=== PATIENT | male | born 1975 | race Caucasian/White ===

== ENCOUNTER 2019-03-18 15:01 | Inpatient (IN) | payer MEDICAID ==
[~2019-03-18] VITALS: Ht 167.6 cm; Wt 78.9 kg
[2019-03-18 15:05] VITALS: BP 130/75
--- NOTE | 2019-03-18 15:21 | NUR ---
43/M BIB C/O CONSTANT LOWER ABD PAIN X 4 HRS. DENIES N/V/D. PAIN WORSE UPON AMBULATION. HX OF UTI 2 WEEKS AGO & GOT SULFA PO FOR 1 MONTH;STARTED 03/04/19. PATIENT STATES PAIN OF 10/10 AT THIS TIME. PATIENT POSITIONED FOR COMFORT; HOB ELEVATED; BEDRAILS UP X1; BED DOWN. ER MD MADE AWARE OF PT STATUS.
[2019-03-18] MEDS ORDERED: MORPHINE SULFATE 4 MG/ML SYR IVP ONE (17:00)
[2019-03-18] MEDS ORDERED: ONDANSETRON 4 MG/2 ML VIAL IVP ONE (17:00)
[2019-03-18] MEDS ORDERED: NACL 0.9% 1,000 ML IV ONE (17:05)
[2019-03-18 18:01] LABS: BASOPHILS % (AUTO) 0.2 % (0.0-2.0); EOSINOPHILS # (AUTO) 0.1 K/uL (0-0.4); EOSINOPHILS % (AUTO) 0.4 % (0.0-4.0); HEMATOCRIT 46.6 % (36-52); HEMOGLOBIN 15.8 g/dL (12.0-18.0); LYMPHOCYTES # (AUTO) 0.6 K/uL (2.0-11.5); LYMPHOCYTES % (AUTO) 4.1 % (20.5-51.1); MEAN CORPUSCULAR HEMOGLOBIN 31 pg (27-31); MEAN CORPUSCULAR HGB CONC 34 g/dL (33-37); MEAN CORPUSCULAR VOLUME 91.2 fL (80-94); MONOCYTES # (AUTO) 0.6 K/uL (0.8-1.0); MONOCYTES % (AUTO) 4.2 % (1.7-9.3); NEUTROPHILS # (AUTO) 13.1 K/uL (1.8-7.7); NEUTROPHILS % (AUTO) 91.1 % (42.2-75.2); PLATELET COUNT (AUTO) 252 K/uL (140-450); RED BLOOD CELL COUNT(AUTO) 5.11 MIL/uL (4.20-6.10); RED CELL DISTRIBUTION WIDTH 12.5 % (11.6-13.7); WHITE BLOOD COUNT (AUTO) 14.3 K/uL (4.8-10.8)
[2019-03-18 18:16] LABS: ANION GAP 10.9 (8-16); CARBON DIOXIDE 27.8 mmol/L (21-32); CREATININE 1.3 mg/dL (0.7-1.3); POTASSIUM 3.7 mmol/L (3.5-5.1)
[2019-03-18 18:22] LABS: ALBUMIN 4.2 g/dL (3.4-5.0); TOTAL BILIRUBIN 1.4 mg/dL (0.0-1.0)
[2019-03-18 18:39] LABS: APPEARANCE,URINE CLEAR (CLEAR); BILIRUBIN,URINE NEGATIVE (NEGATIVE); BLOOD, URINE NEGATIVE (NEGATIVE); COLOR,URINE YELLOW (YELLOW); LEUKOCYTE ESTERASE ,URINE NEGATIVE (NEGATIVE); NITRITE, URINE NEGATIVE (NEGATIVE); UGLUCOSE NEGATIVE (NEGATIVE)
--- NOTE | 2019-03-18 19:05 | NUR ---
PT RETURNED FROM CT. ABLE TO AMBULATE FROM W/C BED WITHOUT ASSISTANCE.
--- NOTE | 2019-03-18 19:07 | NUR ---
Pt report given to MIRIAN LORA. Transfer of care at this time.
--- NOTE | 2019-03-18 19:10 | NUR ---
RECIVED REPORT FROM CB LORA.
--- NOTE | 2019-03-18 19:15 | NUR ---
PT AMBULATED FROM TO RESTROOM TO BED WITH ASSISTANCE FROM .
--- NOTE | 2019-03-18 19:18 | NUR ---
PT RESTING UPRIGHT IN BED EYES OPEN. PT RESPIRATIONS ARE EVEN AND UNLABORED. SKIN IS WARM AND DRY TO TOUCH. PT AXO X4. PT HAS C/O 10/10 LOWER ABD PAIN. NOTIFIED. AT BEDSIDE. BED LOCKED AND IN LOWEST POSITION.
[2019-03-18] MEDS ORDERED: NACL 0.9% 1,000 ML IV SCH (19:47)
[2019-03-18] MEDS ORDERED: LEVOFLOXACIN 500 MG/D5W PREMIX 100 ML IV SCH (19:50)
[2019-03-18] MEDS ORDERED: ONDANSETRON 4 MG/2 ML VIAL IM/IVP PRN (19:50)
[2019-03-18] MEDS ORDERED: DOCUSATE SODIUM 100 MG GELCAP PO PRN (19:50)
[2019-03-18] MEDS ORDERED: PIPERACILLIN/TAZOBACTAM 3.375 GM in DEXTROSE 5% 50 ML IV ONE (19:55)
--- NOTE | 2019-03-18 20:00 | NUR ---
XRAY AT BEDSIDE.
--- NOTE | 2019-03-18 20:20 | NUR ---
Patient will be admitted to care of DR. DUNBAR. Admited to [facility] [[email or web address] Will go to room 106A. Belongings list completed. Report to SAYRA LORA.
[2019-03-18 20:26] VITALS: BP 116/83
--- NOTE | 2019-03-18 20:26 | NUR ---
ADMITTED A 43 YEAR OLD MALE FROM ED ACCOMPANIED BY 1 RN AND 1 EMT VIA GURNEY. NO APPARENT DISTRESS NOTED. PATIENT ALERT AND ORIENTED X4. ACCOMPANIED BY . WITH COMPLAINT OF 10/10 PAIN ON LOWER ABDOMINAL AREA. WILL MEDICATE PER PAIN SCALE. WITH PERIPHERAL IV ON LEFT AC 18 GAUGE ON SALINE LOCK. REVIEWED PLAN OF CARE. VERBALIZED UNDERSTANDING. SEEN BY RESIDENT DOCTOR, DOCTOR FRANCIS. ORIENTED TO ROOM, ROOMMATE, HOSPITAL ROUTINE AND ENVIRONMENT. CALL LIGHT WITHIN REACH. WILL CONTINUE TO MONITOR.
[2019-03-18] MEDS ORDERED: CLINDAMYCIN 600 MG in DEXTROSE 5% 50 ML IV SCH (21:00)
[2019-03-18] MEDS ORDERED: LORazepam 1 MG TAB PO PRN (21:00)
[2019-03-18] MEDS: DEXT 5% / NACL 0.45% 1,000 ML IV SCH (21:17)
[2019-03-18 21:23] LABS: BARBITURATE, URINE NEG. ng/ml (NEG <=200); BENZODIAZEPINE, URINE NEG. ng/mL (NEG <=200); CANNABINOID, URINE NEG. ng/mL (NEG <=50); COCAINE, URINE NEG. ng/mL (NEG <=300); OPIATE, URINE NEG. ng/mL (NEG <=2000); PHENCYCLIDINE SCREEN,URINE NEG. ng/mL (NEG <=25)
[2019-03-18] MEDS ORDERED: PIPERACILLIN/TAZOBACTAM 3.375 GM VIAL IV ONE (21:23)
[2019-03-18] MEDS ORDERED: OMEP20TC12 PO (21:29)
[2019-03-18 21:30] LABS: CHOL/HDL RATIO 4.2 (1-4.5); FREE T4 (FREE THYROXINE) 1.04 ng/dL (0.76-1.46); MAGNESIUM 1.7 mg/dL (1.8-2.4); PHOSPHORUS 2.7 mg/dL (2.5-4.9); THYROID STIMULATING HORMONE 1.36 uIU/mL (0.34-3.74)
[2019-03-18] MEDS: LORazepam 1 MG TAB PO SCH (21:31)
[2019-03-18] MEDS: ACETAMINOPHEN 325 MG TAB PO PRN (21:31)
[2019-03-18] MEDS: HYDROcodone/APAP 7.5/325 MG 1 TAB PO PRN (21:31)
[2019-03-18] MEDS: PIPERACILLIN/TAZOBACTAM 3.375 GM in DEXTROSE 5% 50 ML IV SCH (21:34)
[2019-03-18 21:49] LABS: PROTHROMBIN TIME 9.1 secs (10.8-13.4)
--- NOTE | 2019-03-18 22:20 | NUR ---
PATIENT AWAKE IN BED. NO APPARENT DISTRESS NOTED. DENIES PAIN NOR DISCOMFORT AT THIS TIME. WILL CONTINUE TO MONITOR.
[2019-03-18] MEDS ORDERED: MAGNESIUM OXIDE 400 MG TAB PO SCH (23:00)
[2019-03-19] VITALS: BP 109/67
--- NOTE | 2019-03-19 00:15 | NUR ---
PATIENT ASLEEP IN BED. VISIBLE CHEST RISE AND FALL NOTED. NO APPARENT DISTRESS NOTED. WILL CONTINUE TO MONITOR.
--- NOTE | 2019-03-19 02:15 | NUR ---
PATIENT ASLEEP IN BED. BED ON LOW POSITION. CALL LIGHT WITHIN REACH. NO APPARENT DISTRESS NOTED. VISIBLE CHEST RISE AND FALL NOTED. WILL CONTINUE TO MONITOR.
[2019-03-19] MEDS: DEXT 5% / NACL 0.45% 1,000 ML IV SCH ×3 (03:12→17:46)
--- NOTE | 2019-03-19 03:28 | NUR ---
PATIENT ASLEEP IN BED. NO APPARENT DISTRESS NOTED. VISIBLE CHEST RISE AND FALL NOTED. WILL CONTINUE TO MONITOR.
[2019-03-19 04:00] VITALS: BP 109/68
[2019-03-19] MEDS ORDERED: PIPERACILLIN/TAZOBACTAM 3.375 GM VIAL IV ONE (04:32)
[2019-03-19] MEDS: PIPERACILLIN/TAZOBACTAM 3.375 GM in DEXTROSE 5% 50 ML IV SCH ×3 (04:39→20:26)
[2019-03-19] MEDS: LORazepam 1 MG TAB PO SCH ×3 (04:48→20:27)
--- NOTE | 2019-03-19 05:25 | NUR ---
PATIENT ASLEEP IN BED. NO APPARENT DISTRESS NOTED. WILL CONTINUE TO MONITOR.
--- NOTE | 2019-03-19 06:38 | NUR ---
PATIENT HAS BEEN SCREENED AND CATEGORIZED MODERATE NUTRITION RISK. PATIENT WILL BE SEEN WITHIN 3-5 DAYS OF ADMISSION. 03/20/19-03/22/19 DORIAN HERNANDEZ MS, RDN
--- NOTE | 2019-03-19 06:55 | NUR ---
PATIENT ASLEEP IN BED. NO APPARENT DISTRESS NOTED. VISIBLE CHEST RISE AND FALL. WILL CONTINUE TO MONITOR.
[2019-03-19 07:00] LABS: ANION GAP 11.2 (8-16); CARBON DIOXIDE 26.3 mmol/L (21-32); CREATININE 1.3 mg/dL (0.7-1.3); POTASSIUM 3.5 mmol/L (3.5-5.1)
--- NOTE | 2019-03-19 07:19 | NUR ---
ENDORSED TO AM SHIFT NURSE FOR CONTINUITY OF CARE.
--- NOTE | 2019-03-19 07:20 | NUR ---
RECEIVED REPORT FROM NIGHT NURSE, PT AAOX4, PT WOKE UP TO INTRODUCE SELF, PT RESTING IN BED, PT IS STABLE, LAC 18G RUNNING D5I/2NS AT 140 ML/H, SAFETY MEASURES IN PLACE, CALL LIGHT WITHIN REACH.
[2019-03-19 07:25] LABS: CHOL/HDL RATIO 2.8 (1-4.5)
[2019-03-19 07:37] LABS: BASOPHILS % (AUTO) 0.1 % (0.0-2.0); EOSINOPHILS % (AUTO) 0.2 % (0.0-4.0); HEMATOCRIT 40.6 % (36-52); HEMOGLOBIN 13.8 g/dL (12.0-18.0); LYMPHOCYTES # (AUTO) 0.7 K/uL (2.0-11.5); LYMPHOCYTES % (AUTO) 5.2 % (20.5-51.1); MEAN CORPUSCULAR HEMOGLOBIN 31 pg (27-31); MEAN CORPUSCULAR HGB CONC 34 g/dL (33-37); MEAN CORPUSCULAR VOLUME 91.8 fL (80-94); MONOCYTES # (AUTO) 0.6 K/uL (0.8-1.0); MONOCYTES % (AUTO) 4.4 % (1.7-9.3); NEUTROPHILS # (AUTO) 11.5 K/uL (1.8-7.7); NEUTROPHILS % (AUTO) 90.1 % (42.2-75.2); PLATELET COUNT (AUTO) 210 K/uL (140-450); RED BLOOD CELL COUNT(AUTO) 4.42 MIL/uL (4.20-6.10); RED CELL DISTRIBUTION WIDTH 12.2 % (11.6-13.7); WHITE BLOOD COUNT (AUTO) 12.7 K/uL (4.8-10.8)
[2019-03-19 08:01] VITALS: BP 111/68
[2019-03-19] MEDS ORDERED: CRUSHER, PILL MC ONE (08:16)
[2019-03-19] MEDS: LACTOBACILLUS RHAMNOSUS GG 1 EACH CAP PO SCH (08:17)
[2019-03-19] MEDS: FOLIC ACID 1 MG TAB PO SCH (08:17)
[2019-03-19] MEDS: MULTIVITAMIN 1 TAB PO SCH (08:17)
[2019-03-19] MEDS: PANTOPRAZOLE 40 MG TABEC PO SCH (08:17)
[2019-03-19] MEDS: THIAMINE 100 MG TAB PO SCH (08:18)
--- NOTE | 2019-03-19 08:20 | NUR ---
GAVE ORDERED MEDICATION TO PT. EDUCATION GIVEN. GAVE TYLENOL FOR TEMPERATURE OF 101.3, PT TOLERATED WELL. ADD COOLING MEASURES, ICE TO AXIAL, AND NO BLANKETS ON PT. CALL LIGHT WITHIN REACH.
[2019-03-19] MEDS ORDERED: KETOROLAC 15 MG/ML VIAL IVP SCH (09:13)
--- NOTE | 2019-03-19 09:29 | NUR ---
GAVE PT ORDERED TORADOL FOR SEVER PAIN OF 10/10 IN ABDOMEN, PT STATES IT HURTS TO BREATH OR WHEN HE MOVES, PT EDUCATION GIVEN, PT TOLERATED WELL, PT IS STABLE, CALL LIGHT WITHIN REACH.
--- NOTE | 2019-03-19 10:40 | NUR ---
PT TEMPERATURE IS 98.8, PT IS STABLE, ONLY ALLOWED ONE BLANKET AND WILL CONTINUE TO MONITOR TEMPERATURE. CALL LIGHT WITHIN REACH.
[2019-03-19 12:00] VITALS: BP 100/57
--- NOTE | 2019-03-19 12:30 | NUR ---
GAVE PT ORDERED ANTIBIOTIC, PT EDUCATION GIVEN, PT IS STABLE, CALL LIGHT WITHIN REACH.
[2019-03-19] MEDS: MAG SULF 2000 MG/WATER PREMIX 50 ML IV SCH (13:48)
--- NOTE | 2019-03-19 13:57 | NUR ---
HANG ORDERED MEDICATION, EDUCATION GIVEN, PT STABLE, VISITORS AT BEDSIDE, CALL LIGHT WITHIN REACH.
--- NOTE | 2019-03-19 15:04 | NUR ---
PT IS SLEEPING IN BED, NO SIGNS OF DISTRESS NOTED, CALL LIGHT WITHIN REACH.
--- NOTE | 2019-03-19 15:11 | NUR ---
DISCHARGE PLANNING: A 43 Y/O MALE PATIENT FROM HOME, WHO CAME IN DUE TO ABDOMINAL PAIN. PAST MEDICAL HISTORY INCLUDE GASTRITIS. INITIAL DIAGNOSIS OF POSSIBLE PERFORATED DIVERTICULITIS. CURRENT LABS INCLUDE WBC 12.7, H/H 13.8/40.6, NA/K 136/3.5 AND MAG 1.7. URINE AND BLOOD CULTURES PENDING. ON ZOSYN. GI CONSULT WITH DR VEGA FOR PERFORATED DIVERTICULITIS. SURGICAL CONSULT WITH DR WOOD OF POSSIBLE PERFORATED DIVERTICULITIS. PER SURGERY NON SURGICAL MANAGEMENT AT THIS TIME. DC PLAN TO HOME ONCE STABLE. Addendum: 03/20/19 at 1424 by Kandis Keith CM ON FULL LIQUID DIET. CURRENT LABS INCLUDE WBC 8.8, H/H 12.7/36.9, NA/K 136/3.2. GI AND SURGICAL CONSULT IN PLACE. ABDOMINAL X RAY IS NEGATIVE. STILL ON ZOSYN IV. DC PLAN TO HOME ONCE STABLE.
--- NOTE | 2019-03-19 15:16 | NUR ---
GAVE PT AN INCENTIVE SPIROMETER, EDUCATE PT ON USING IT, PT INHALED 1500ML PER MEASUREMENTS. PT EDUCATE TO DO 10 INHALATION PER HOUR. PT VERBALIZE UNDERSTANDING, PT IS STABLE, CALL LIGHT WITHIN REACH.
[2019-03-19 16:00] VITALS: BP 113/60
[2019-03-19] MEDS: ACETAMINOPHEN 325 MG TAB PO PRN (16:15)
--- NOTE | 2019-03-19 16:17 | NUR ---
GAVE TYLENOL FOR A TEMPERATURE OF 101, COOLING MEASURES IN PLACE, ICE PACKS UNDER THE AXILA AND NO BLANKETS, EDUCATION GIVEN, PT IS STABLE, CALL LIGHT WITHIN REACH.
[2019-03-19] MEDS: HYDROcodone/APAP 7.5/325 MG 1 TAB PO PRN (17:45)
--- NOTE | 2019-03-19 17:50 | NUR ---
GAVE PT NORCO FOR SEVER ABDOMINAL PAIN OF 6/10, PT AMBULATE IN THE HALLWAY AND FELT PAIN AFTERWARDS, PT IS BACK IN BED RESTING, FAMILY MEMBER AT THE BEDSIDE, CALL LIGHT WITHIN REACH.
--- NOTE | 2019-03-19 19:07 | NUR ---
GAVE REPORT TO NIGHT NURSE FOR CONTINUITY OF CARE, PT IS STABLE.
--- NOTE | 2019-03-19 19:09 | NUR ---
RECEIVED REPORT FROM AM NURSE FUNMI, PT AAOX4, PT AMBULATORY NPO PT WITH COLD PACKS UNDERNEATH ARMPITS PER PREVIOUS NURSE HAD A FEVER EARLIER , PT RESTING IN BED, WITH FAMILY AT BEDSIDE. WITH LAC 18G RUNNING D5 1/2NS AT 140 ML/H, SAFETY MEASURES IN PLACE, CALL LIGHT WITHIN REACH.
[2019-03-19 20:00] VITALS: BP 103/65
--- NOTE | 2019-03-19 20:00 | NUR ---
VITALS SIGNS TAKEN WNL, AFEBRILE, COLD PACKS STILL MAINTAINED WITH PATIENT.
[2019-03-20] VITALS: BP 105/66
[2019-03-20] MEDS: DEXT 5% / NACL 0.45% 1,000 ML IV SCH ×3 (02:07→18:24)
[2019-03-20 04:00] VITALS: BP 106/63
--- NOTE | 2019-03-20 04:00 | NUR ---
VITALS TAKEN NO FEVER, NO COMPLAINTS OF PAIN WILL CONTINUE TO MONITOR
[2019-03-20] MEDS: PIPERACILLIN/TAZOBACTAM 3.375 GM in DEXTROSE 5% 50 ML IV SCH ×3 (04:37→20:39)
[2019-03-20] MEDS: LORazepam 1 MG TAB PO SCH (04:37)
--- NOTE | 2019-03-20 05:00 | NUR ---
PT STATED THAT WHEN PT AMBULATES THAT HE COULD FEEL ABD PAIN 9/10 REFUSED TO TAKE THE PAIN MEDICATION
--- NOTE | 2019-03-20 06:15 | NUR ---
PT ABLE TO GO TO BATHROOM STEADY GAIT, STILL NO COMPLAINTS OF PAIN WILL MONITOR
[2019-03-20 06:23] LABS: BASOPHILS % (AUTO) 0.2 % (0.0-2.0); EOSINOPHILS # (AUTO) 0.1 K/uL (0-0.4); EOSINOPHILS % (AUTO) 0.6 % (0.0-4.0); HEMATOCRIT 36.9 % (36-52); HEMOGLOBIN 12.7 g/dL (12.0-18.0); LYMPHOCYTES # (AUTO) 0.6 K/uL (2.0-11.5); LYMPHOCYTES % (AUTO) 6.5 % (20.5-51.1); MEAN CORPUSCULAR HEMOGLOBIN 32 pg (27-31); MEAN CORPUSCULAR HGB CONC 34 g/dL (33-37); MEAN CORPUSCULAR VOLUME 91.7 fL (80-94); MONOCYTES # (AUTO) 0.3 K/uL (0.8-1.0); NEUTROPHILS # (AUTO) 7.8 K/uL (1.8-7.7); NEUTROPHILS % (AUTO) 88.7 % (42.2-75.2); PLATELET COUNT (AUTO) 160 K/uL (140-450); RED BLOOD CELL COUNT(AUTO) 4.02 MIL/uL (4.20-6.10); RED CELL DISTRIBUTION WIDTH 12.4 % (11.6-13.7); WHITE BLOOD COUNT (AUTO) 8.8 K/uL (4.8-10.8)
--- NOTE | 2019-03-20 06:52 | NUR ---
PT AWAKE ALERT ORIENTED X 4, AMBULATORY, PT IN STABLE CONDITION WILL ENDORSE TO NEXT SHIFT.
[2019-03-20 06:54] LABS: ANION GAP 9.3 (8-16); CARBON DIOXIDE 26.9 mmol/L (21-32); CREATININE 1.3 mg/dL (0.7-1.3); POTASSIUM 3.2 mmol/L (3.5-5.1)
--- NOTE | 2019-03-20 07:15 | NUR ---
RECEIVED PATIENT FROM NURSING PROFESSOR NURSE. PATIENT IS AWAKE. AOX4. RESPIRATIONS EVEN AND UNLABORED, ROOM AIR. VISIBLE CHEST RISE NOTED. ON TELE MONITORING. ABDOMEN SOFT AND ROUND. C/O OF ABDOMINAL PAIN. PATIENT IS AMBULATORY. SKIN INTACT, WARM AND DRY. IV IN THE LEFT AC G 18 RUNNING D51/2NS AT 140 ML/HR. IV PATENT AND INTACT. BED IN LOW POSITION. CALL LIGHT IS WITHIN REACH. WILL CONTINUE TO MONITOR
[2019-03-20 08:00] VITALS: BP 109/59
--- NOTE | 2019-03-20 09:00 | NUR ---
STOOL OCCULT SAMPLE TAKEN.
[2019-03-20] MEDS: POLYETHYLENE GLYCOL 17 GM/PKT PO SCH (09:11)
--- NOTE | 2019-03-20 09:11 | NUR ---
GIVEN MORNING MEDICATIONS PO. EXPLAINED TO PATIENT INDICATIONS. PATIENT VERBALIZED UNDERSTANDING. WILL CONTINUE TO MONITOR
[2019-03-20] MEDS: THIAMINE 100 MG TAB PO SCH (09:12)
[2019-03-20] MEDS: LACTOBACILLUS RHAMNOSUS GG 1 EACH CAP PO SCH (09:12)
[2019-03-20] MEDS: FOLIC ACID 1 MG TAB PO SCH (09:12)
[2019-03-20] MEDS: MULTIVITAMIN 1 TAB PO SCH (09:12)
[2019-03-20] MEDS: PANTOPRAZOLE 40 MG TABEC PO SCH (09:14)
[2019-03-20] MEDS: HYDROcodone/APAP 7.5/325 MG 1 TAB PO PRN (10:55)
--- NOTE | 2019-03-20 10:55 | NUR ---
GIVEN NORCO FOR ABDOMINAL PAIN OF 610. EXPLAINED TO PATIENT INDICATIONS. PATIENT VERBALIZED UNDERSTANDING. WILL CONTINUE TO MONITOR
[2019-03-20] MEDS ORDERED: KCL 20 MEQ/WATER INJ PREMIX 200 ML IV SCH (11:00)
[2019-03-20] MEDS ORDERED: BISACODYL 10 MG SUPP RC SCH (11:00)
--- NOTE | 2019-03-20 11:24 | NUR ---
PATIENT OFF UNIT TO RADIOLOGY VIA WHEELCHAIR
--- NOTE | 2019-03-20 11:38 | NUR ---
PATIENT RETURNED FROM RADIOLOGY VIA WHEELCHAIR.
--- NOTE | 2019-03-20 11:51 | NUR ---
GIVEN DULCOLAX VIA SUPPOSITORY. HANG KCL VIA IVF. POTASSIUM LEVEL IS 3.2. PATIENT C/O OF PAIN IN THE INSERTION SITE. EDUCATED PATIENT REGARDING MEDICATIONS. PATIENT VERBALIZED UNDERSTANDING. WILL CONTINUE TO MONITOR
--- NOTE | 2019-03-20 11:59 | NUR ---
LOWERED RATE FOR KCL FROM 50 TO 30 ML/HR PER DR. CAMPOVERDE.
[2019-03-20 12:00] VITALS: BP 115/67
--- NOTE | 2019-03-20 12:39 | NUR ---
PATIENT IS EATING LUNCH AT THIS TIME. NO SIGNS OF DISTRESS NOTED. WILL CONTINUE TO MONITOR. PATIENT STATED NO PAIN IN THE IV LINE.
--- NOTE | 2019-03-20 12:52 | NUR ---
HANG ZOSYN VIA IVPB. EXPLAINED TO PATIENT MEDICATION. PATIENT VERBALIZED UNDERSTANDING. BED IN LOW POSITION. CALL LIGHT IS WITHIN REACH. WILL CONTINUE TO MONITOR
--- NOTE | 2019-03-20 14:06 | NUR ---
PATIENT IS RESTING AT THIS TIME. DENIES PAIN. BED IN LOW POSITION. CALL LIGHT IS WITHIN REACH. WILL CONTINUE TO MONITOR
[2019-03-20 16:00] VITALS: BP 132/75
[2019-03-20] MEDS: MAG SULF 2000 MG/WATER PREMIX 50 ML IV SCH (16:16)
--- NOTE | 2019-03-20 16:16 | NUR ---
GIVEN MAGNESIUM VIA IVF FOR MAG LEVEL 1.7. EXPLAINED TO PATIENT INDICATION. PATIENT VERBALIZED UNDERSTANDING. WILL CONTINUE TO MONITOR
[2019-03-20] MEDS: ACETAMINOPHEN 325 MG TAB PO PRN ×2 (18:01→22:27)
--- NOTE | 2019-03-20 18:03 | NUR ---
PATIENT STATED FEELING FEVERISH AND CHILLS. CHECKED TEMPERATURE IT'S 99.5. GIVEN TYLENOL, PATIENT INSISTS. EDUCATED PATIENT REGARDING MED. PATIENT VERBALIZED UNDERSTANDING. WILL CONTINUE TO MONITOR. AT BEDSIDE
--- NOTE | 2019-03-20 19:17 | NUR ---
ENDORSED TO INTERFACE ANALYST NURSE. PATIENT IS IN STABLE CONDITION.
--- NOTE | 2019-03-20 19:30 | NUR ---
RECEIVED BEDSIDE REPORT FROM AM SHIFT RN FOR PT'S CONTINUITY OF CARE. PT IS AAOX4, FAMILY MEMBER AT BEDSIDE, ON CANCER PROGRAM COORDINATOR, ON ROOM AIR, HAS LEFT AC 18G WITH D5 1/2 NS AT 140 ML/HR, PT DENIES PAIN AT THIS TIME. EXPLAINED TO PT AND FAMILY MEMBER THE DIRECTOR OF MANUFACTURING OPERATIONS ROUTINE, PT VERBALIZED UNDERSTANDING. SAFETY MEASURES IN PLACE, AND CALL LIGHT IS WITHIN REACH. WILL MONITOR PT THROUGHOUT SHIFT.
[2019-03-20 20:00] VITALS: BP 126/75
--- NOTE | 2019-03-20 21:25 | NUR ---
ABOUT TO ADMINISTER IV ABX, PT'S IV SITE INFILTRATED. STARTED NEW IV ON RIGHT FA WITH 22G, PT TOLERATED IT WELL, STARTED THE IVF AT 80ML/HR ORDERED, AND IV ABX ORDERED. PT ORAL TEMP WAS 101, WILL MEDICATE PT.
[2019-03-20] MEDS: LORazepam 1 MG TAB PO PRN (22:26)
--- NOTE | 2019-03-20 22:28 | NUR ---
PT'S TEMP WAS 101 VIA ORAL THERMOMETER, AND STATES FEELING ANXIOUS DT ALCOHOL WITHDRAWAL. PT STATES USED TO DRINK ALCOHOL EVERY NIGHT. NOTIFIED MD, ADMINISTERED PRN ACETAMINOPHEN, AND PRN ANTI-ANXIETY MEDICATION ORDERED. PT TOLERATED THEM WELL. COOLING MEASURES IN PLACE. PT TEACHING GIVEN, PT VERBALIZED UNDERSTANDING. WILL CONTINUE TO MONITOR PT.
[2019-03-20] MEDS: MORPHINE SULFATE 2 MG/ML SYR IVP PRN (23:57)
--- NOTE | 2019-03-20 23:57 | NUR ---
PT C/O ABD PAIN. ADMINISTERED PRN IVP PAIN MEDICATION ORDERED. COOLING MEASURES IN PLACE. MD AWARE OF PT'S TEMP. NO NEW ORDERS AT THIS TIME.
[2019-03-21] VITALS: BP 126/72
--- NOTE | 2019-03-21 00:30 | NUR ---
VS CHECKED AND CHARTED. PT VERBALIZED "FEELS MUCH BETTER NOW". TEMP 99.9. WILL CONTINUE TO MONITOR PT.
--- NOTE | 2019-03-21 02:30 | NUR ---
PT ASLEEP WITH NO SIGN SOF DISTRESS OR DISCOMFORT. WILL CONTINUE TO MONITOR PT.
[2019-03-21 04:00] VITALS: BP 134/80
[2019-03-21] MEDS: PIPERACILLIN/TAZOBACTAM 3.375 GM in DEXTROSE 5% 50 ML IV SCH ×3 (04:11→20:03)
[2019-03-21] MEDS: ACETAMINOPHEN 325 MG TAB PO PRN ×3 (04:15→19:45)
--- NOTE | 2019-03-21 04:15 | NUR ---
VS CHECKED AND CHARTED. PT'S TEMP 101.6 ORALLY. NOTIFIED MD. MD WILL SEE PT AND ASSESS. ADMINISTERED PRN PO ACETAMINOPHEN ORDERED. COOLING MEASURES IN PLACE. PT STATES HE HAS DRUMMOND AND ABD PAIN, BUT REFUSED PAIN MEDICATIONS. WILL CONTINUE TO MONITOR PT.
--- NOTE | 2019-03-21 05:45 | NUR ---
TEMPERATURE RETAKEN: 99.7. NOTIFIED MD, NO NEW ORDERS.
--- NOTE | 2019-03-21 06:21 | NUR ---
PT ASLEEP WITH NO SIGNS OF DISTRESS OR DISCOMFORT. WILL ENDORSE TO AM SHIFT RN FOR PT'S CONTINUITY OF CARE.
[2019-03-21] MEDS: MORPHINE SULFATE 2 MG/ML SYR IVP PRN ×2 (06:44→20:03)
--- NOTE | 2019-03-21 06:44 | NUR ---
PT WAS SEEN BY . C/O PERSISTENT DRUMMOND, ADMINISTERED PRN IVP PAIN MEDICATION ORDERED. PT STATES HE FEELS MUCH BETTER.
--- NOTE | 2019-03-21 07:15 | NUR ---
RECEIVED PATIENT FROM BOILER/CHILLER TECHNICIAN NURSE. PATIENT IS AWAKE. AOX4. RESPIRATIONS EVEN AND UNLABORED, ROOM AIR. VISIBLE CHEST RISE NOTED. ON TELE MONITORING. ABDOMEN SOFT AND ROUND. C/O OF ABDOMINAL PAIN. PATIENT IS AMBULATORY. SKIN INTACT, WARM AND DRY. IV IN THE RIGHT FOREARM G22 RUNNING NS AT 80 ML/HR. IV PATENT AND INTACT. BED IN LOW POSITION. CALL LIGHT IS WITHIN REACH. WILL CONTINUE TO MONITOR
[2019-03-21 07:16] LABS: ANION GAP 12.8 (8-16); CARBON DIOXIDE 24.2 mmol/L (21-32); CREATININE 1.2 mg/dL (0.7-1.3)
[2019-03-21 07:21] LABS: MAGNESIUM 2.3 mg/dL (1.8-2.4); PHOSPHORUS 2.9 mg/dL (2.5-4.9)
[2019-03-21 07:23] LABS: BASOPHILS % (AUTO) 0.1 % (0.0-2.0); EOSINOPHILS % (AUTO) 0.8 % (0.0-4.0); HEMATOCRIT 35.8 % (36-52); HEMOGLOBIN 12.3 g/dL (12.0-18.0); LYMPHOCYTES # (AUTO) 0.3 K/uL (2.0-11.5); LYMPHOCYTES % (AUTO) 6.3 % (20.5-51.1); MEAN CORPUSCULAR HEMOGLOBIN 31 pg (27-31); MEAN CORPUSCULAR HGB CONC 34 g/dL (33-37); MEAN CORPUSCULAR VOLUME 91.5 fL (80-94); MONOCYTES # (AUTO) 0.3 K/uL (0.8-1.0); MONOCYTES % (AUTO) 5.9 % (1.7-9.3); NEUTROPHILS # (AUTO) 4.8 K/uL (1.8-7.7); NEUTROPHILS % (AUTO) 86.9 % (42.2-75.2); PLATELET COUNT (AUTO) 149 K/uL (140-450); RED BLOOD CELL COUNT(AUTO) 3.92 MIL/uL (4.20-6.10); RED CELL DISTRIBUTION WIDTH 12.1 % (11.6-13.7); WHITE BLOOD COUNT (AUTO) 5.5 K/uL (4.8-10.8)
[2019-03-21] MEDS: NACL 0.9% 1,000 ML IV SCH ×2 (07:46→19:55)
--- NOTE | 2019-03-21 07:47 | NUR ---
CHANGED IVF FROM D51/2NS TO NS AT 80 ML/HR PER MD ORDER
[2019-03-21 08:00] VITALS: BP 125/77
[2019-03-21] MEDS ORDERED: LACTOBACILLUS RHAMNOSUS GG 1 EACH CAP PO SCH (09:00)
[2019-03-21] MEDS: MULTIVITAMIN 1 TAB PO SCH (09:41)
[2019-03-21] MEDS: PANTOPRAZOLE 40 MG TABEC PO SCH (09:41)
[2019-03-21] MEDS: LACTOBACILLUS RHAMNOSUS GG 1 EACH CAP PO SCH (09:41)
[2019-03-21] MEDS: THIAMINE 100 MG TAB PO SCH (09:42)
[2019-03-21] MEDS: FOLIC ACID 1 MG TAB PO SCH (09:42)
[2019-03-21] MEDS: POLYETHYLENE GLYCOL 17 GM/PKT PO SCH (09:42)
--- NOTE | 2019-03-21 09:42 | NUR ---
GIVEN MORNING MEDICATIONS PO. GIVEN NORCO FOR PAIN 6/ ABDOMINAL. EXPLAINED TO PATIENT INDICATION. PATIENT VERBALIZED UNDERSTANDING. BED IN LOW POSITION. CALL LIGHT IS WITHIN REACH. WILL CONTINUE TO MONITOR.
[2019-03-21] MEDS: HYDROcodone/APAP 7.5/325 MG 1 TAB PO PRN (09:46)
--- NOTE | 2019-03-21 10:35 | NUR ---
MADE ROUNDS. PATIENT IS RESTING AT THIS TIME. DENIES ANY PAIN. BED IN LOW POSITION. CALL LIGHT IS WITHIN REACH. WILL CONTINUE TO MONITOR.
[2019-03-21 12:00] VITALS: BP 130/81
[2019-03-21] MEDS ORDERED: POTASSIUM CHLORIDE 40 MEQ, LIDOCAINE MPF 1% 25 MG in NACL 0.9% 250 ML IV SCH (12:00)
--- NOTE | 2019-03-21 12:15 | NUR ---
PATIENT GAVE CONSENT FOR CT OF ABDOMEN/PELVIS WITH CONTRAST. DR. CAMPOVERDE SIGNED CONSENT WELL.
--- NOTE | 2019-03-21 12:28 | NUR ---
INSERTED 18G IV FOR CT. PATIENT TOLERATED WELL. IV FLUSHED WELL. PATENT AND INTACT.
[2019-03-21] MEDS: metroNIDAZOLE 500 MG/NS PREMIX 100 ML IV SCH ×2 (13:00→21:48)
[2019-03-21] MEDS: MAG SULF 2000 MG/WATER PREMIX 50 ML IV SCH (13:00)
--- NOTE | 2019-03-21 13:23 | NUR ---
GIVEN ZOSYN VIA IVPB. EXPLAINED TO PATIENT INDICATION. PATIENT VERBALIZED UNDERSTANDING. WILL CONTINUE TO MONITOR.
--- NOTE | 2019-03-21 13:23 | NUR ---
RADIOLOGY STARTED TO HAVE PT. DRINK CONTRAST. 1/2 PER HOUR OF THE WHOLE BOTTLE.
--- NOTE | 2019-03-21 13:32 | NUR ---
ESTHER assessment/discharge plan High Risk DC Screen Yes Name: Michelle Armijo Home Relationship: significant other Pre-Admission Living Arrangements: Lives with Other Other: Michelle Armijo Prior ADL Independent Current Home Health Name/Tel: N/A Current DME/02 Name/Tel: N/A Current Hospice Name/Tel: N/A Current Dialysis Name/Tel: N/A Healthcare Decision Maker: Patient Advance Directive No Information Taught: Advance Directive Community Resources Person Taught: Patient Teaching Tools: Community Resources Computer Generated Print Verbal Factors Affecting Learning: None Participation Level: Active Evaluation: Gestures Understanding Verbalizes Understanding Educator: ESTHER Arriaza Discipline: Case Mgt/Social Svcs Tentative Discharge Plan Summary: Patient is a 43 year old male admitted for possible perforated diverticulitis. I met with patient at bedside. Patient alert and oriented x4. Patient speaks Surinamese. Patient lives at home with his significant other Michelle Armijo and plans to return home upon discharge. Patient goes to [facility] ([place], [place]) for medical care. He does not have any difficulty filling his prescriptions at pharmacy. He denied hx of mental health. He admitted to drinking alcohol daily for 1 year now. He stated he drinks because his significant other likes to drink often, therefore, they drink together. He has realized this is not healthy and plans to stop drinking. He told me they are considering seeking counseling/mental health services. I provided him with education on [facility] www[facility]org for community resources including counseling/mental health services and alcohol/substance abuse treatment programs. Door Slinger and/or Tape Edge Machine Operator will follow up as needed. Signature: ESTHER Arriaza Date: Mar 21, 2019
--- NOTE | 2019-03-21 14:11 | NUR ---
CHECKED PATIENT'S TEMP 100.7. COOLING MEASURE IN PLACE: ICE PACKS GIVEN. TYLENOL IS ALSO GIVEN. PT. IS AWARE OF THE MEDICATION INDICATION. WILL RECHECK TEMP IN 30 MINS.
--- NOTE | 2019-03-21 14:56 | NUR ---
HANG FLAGYL VIA IVPB. EXPLAINED TO PATIENT MED. PATIENT VERBALIZED UNDERSTANDING. BED IN LOW POSITION. CALL LIGHT IS WITHIN REACH. WILL CONTINUE TO MONITOR
--- NOTE | 2019-03-21 15:02 | NUR ---
RECHECKED TEMPERATURE: 99.3. PATIENT DENIES FEELING FEVERISH OR HAVING CHILLS. WILL CONTINUE TO MONITOR
--- NOTE | 2019-03-21 15:36 | NUR ---
HANG KCl FOR POTASSIUM LEVEL 3.0. EXPLAINED TO PATIENT PURPOSE OF THE MED. PATIENT VERBALIZED UNDERSTANDING. WILL CONTINUE TO MONITOR
--- NOTE | 2019-03-21 15:37 | NUR ---
PATIENT IS AMBULATING AROUND THE UNIT. PATIENT DENIES ANY DIZZINESS OR DISCOMFORT. IS WALKING WITH THE PATIENT
--- NOTE | 2019-03-21 15:48 | NUR ---
HELD MAGNESIUM. PATIENT MAGNESIUM LEVEL IS 2.3, WHICH IS WITHIN THE NORMAL LEVEL. DR. AGARWAL IS AWARE.
--- NOTE | 2019-03-21 15:57 | NUR ---
PATIENT IS OFF UNIT FOR CT VIA WHEELCHAIR.
[2019-03-21 16:00] VITALS: BP 121/82
--- NOTE | 2019-03-21 17:05 | NUR ---
DR. CAMPOVERDE SPOKE WITH THE PATIENT AND .
--- NOTE | 2019-03-21 17:56 | NUR ---
CHECKED TEMPERATURE: 101.1. COOLING MEASURE IN PLACE
--- NOTE | 2019-03-21 18:34 | NUR ---
RECHECKED TEMPERATURE: 101.8. GIVEN COOL PACKS. TYLENOL NOT DUE YET
--- NOTE | 2019-03-21 19:13 | NUR ---
ENDORSED TO MEDICAL DRIVER NURSE. PATIENT IS IN STABLE CONDITION.
--- NOTE | 2019-03-21 19:30 | NUR ---
RECEIVED BEDSIDE REPORT FROM AM SHIFT RN FOR PT'S CONTINUITY OF CARE. PT IS AAOX4, WITH FAMILY MEMBER AT BEDSIDE. PT C/O DRUMMODN AND FEVER AND CHILLS. PT FAMILIAR WITH IMMIGRATION LAW SPECIALIST ROUTINE. SAFETY MEASURES IN PLACE, AND CALL LIGHT IS WITHIN REACH. WILL CHECK VS AND MEDICATE NEEDED.
[2019-03-21 20:00] VITALS: BP 121/61
--- NOTE | 2019-03-21 20:00 | NUR ---
PT C/O FEVER AND CHILLS AND PAIN. PT'S ORAL TEMP 102.6. COOLING MEASURES IN PLACE. ADMINISTERED PRN PO MEDICATION FOR FEVER, AND PRN IVP PAIN AND IV ABX MEDICATIONS ORDERED. WILL NOTIFY RE: PT'S CONDITION.
[2019-03-21] MEDS: KETOROLAC 15 MG/ML VIAL IVP PRN (21:48)
[2019-03-21] MEDS: APAP/BUTAL/CAFF 325/50/40 MG 1 TAB PO PRN (21:50)
--- NOTE | 2019-03-21 21:50 | NUR ---
ADMINISTERED NEW MEDICATIONS ORDERED. PT TOLERATED THEM WELL. PT TEACHING GIVEN. COOLING MEASURES IN PLACE. PT STATES ABD PAIN AT TOLERABLE LEVEL, DRUMMOND IS SEVERE, WITH CHILLS. WILL CONTINUE TO MONITOR.
[2019-03-21] MEDS ORDERED: FAMOTIDINE 20 MG TAB PO SCH ×2 (22:00→22:15)
[2019-03-21] MEDS ORDERED: ZOLPIDEM 10 MG TAB PO SCH (22:00)
[2019-03-21] MEDS ORDERED: MEROPENEM 1,000 MG VIAL IV ONE (23:48)
[2019-03-21] MEDS: MEROPENEM 1,000 MG in NACL 0.9% 100 ML IV SCH (23:58)
[2019-03-22] VITALS: BP 113/75
--- NOTE | 2019-03-22 | NUR ---
ADMINISTERED NEW IV ABX ORDERED. PT TEACHING GIVEN. VS CHECKED AND CHARTED. ORAL TEMP 98.4, AND PT DENIES ANY HEADACHE. WILL NOTIFY MD OF THE PROGRESS.
--- NOTE | 2019-03-22 02:30 | NUR ---
PT LYING DOWN ASLEEP WITH NO SIGNS OF DISTRESS. WILL CONTINUE TO MONITOR PT.
[2019-03-22 04:00] VITALS: BP 134/92
[2019-03-22] MEDS: APAP/BUTAL/CAFF 325/50/40 MG 1 TAB PO PRN ×2 (04:44→10:12)
[2019-03-22] MEDS: KETOROLAC 15 MG/ML VIAL IVP PRN ×3 (04:44→21:25)
--- NOTE | 2019-03-22 04:44 | NUR ---
VS CHECKED AND CHARTED. PT'S TEMP 101.9. PT C/O SEVERE DRUMMOND. ADMINISTERED PRN IVP TORADOL, AND PO FIORICET ORDERED. COOLING MEASURES IN PLACE. AWARE.
[2019-03-22] MEDS: NACL 0.9% 1,000 ML IV SCH (06:28)
--- NOTE | 2019-03-22 06:30 | NUR ---
PT STATES FEELS MUCH BETTER THAN EARLIER. ORAL TEMP CHECKED 99. PT TEACHING GIVEN RE: CONTINUOUS COOLING MEASURES, AND NEW IV ABX. PT VERBALIZED UNDERSTANDING. WILL ENDORSE TO AM SHIFT RN FOR PT'S CONTINUITY OF CARE.
[2019-03-22 07:11] LABS: BASOPHILS % (AUTO) 0.3 % (0.0-2.0); EOSINOPHILS % (AUTO) 0.4 % (0.0-4.0); HEMATOCRIT 36.9 % (36-52); HEMOGLOBIN 12.6 g/dL (12.0-18.0); LYMPHOCYTES # (AUTO) 0.3 K/uL (2.0-11.5); LYMPHOCYTES % (AUTO) 8.6 % (20.5-51.1); MEAN CORPUSCULAR HEMOGLOBIN 31 pg (27-31); MEAN CORPUSCULAR HGB CONC 34 g/dL (33-37); MEAN CORPUSCULAR VOLUME 90.9 fL (80-94); MONOCYTES # (AUTO) 0.4 K/uL (0.8-1.0); MONOCYTES % (AUTO) 11.8 % (1.7-9.3); NEUTROPHILS # (AUTO) 2.8 K/uL (1.8-7.7); NEUTROPHILS % (AUTO) 78.9 % (42.2-75.2); PLATELET COUNT (AUTO) 165 K/uL (140-450); RED BLOOD CELL COUNT(AUTO) 4.06 MIL/uL (4.20-6.10); RED CELL DISTRIBUTION WIDTH 12.1 % (11.6-13.7); WHITE BLOOD COUNT (AUTO) 3.5 K/uL (4.8-10.8)
--- NOTE | 2019-03-22 07:20 | NUR ---
RECEIVED BEDSIDE REPORT FROM SPORTS BETTING MANAGER NURSE STACEY. PT IS AWAKE AND ALERT, HAS A COLD TOWEL ON HIS FOREHEAD DUE TO PERSISTENT FEVER. PT IN NO ACUTE DISTRESS. ON ROOM AIR, SKIN INTACT. TWO IV SITES: R FA 22 G, AND R AC 18 G INFUSING NS 80 ML/HR. PT IS AMBULATORY AND ABLE TO MAKE NEEDS KNOWN. CALL LIGHT IS WITHIN REACH. WILL CONTINUE TO MONITOR.
[2019-03-22 07:23] LABS: ANION GAP 15.9 (8-16); CARBON DIOXIDE 22.4 mmol/L (21-32); CREATININE 1.1 mg/dL (0.7-1.3); POTASSIUM 3.3 mmol/L (3.5-5.1)
[2019-03-22 07:32] LABS: MAGNESIUM 1.9 mg/dL (1.8-2.4); PHOSPHORUS 3.9 mg/dL (2.5-4.9)
[2019-03-22 08:00] VITALS: BP 117/77
--- NOTE | 2019-03-22 09:30 | NUR ---
PT HAVING CXR AT THIS TIME.
--- NOTE | 2019-03-22 10:03 | NUR ---
PT C/O HEADACHE. WILL ADMINISTER PRN FIORICET WHEN APPROPRIATE. ORAL TEMP IS 98.8 AT THIS TIME.
[2019-03-22] MEDS: PANTOPRAZOLE 40 MG TABEC PO SCH (10:12)
[2019-03-22] MEDS: LACTOBACILLUS RHAMNOSUS GG 1 EACH CAP PO SCH (10:12)
[2019-03-22] MEDS: FOLIC ACID 1 MG TAB PO SCH (10:13)
[2019-03-22] MEDS: FAMOTIDINE 20 MG TAB PO SCH ×2 (10:13→21:23)
[2019-03-22] MEDS: THIAMINE 100 MG TAB PO SCH (10:13)
[2019-03-22] MEDS: MULTIVITAMIN 1 TAB PO SCH (10:13)
[2019-03-22] MEDS: POLYETHYLENE GLYCOL 17 GM/PKT PO SCH ×3 (10:14→21:00)
--- NOTE | 2019-03-22 10:17 | NUR ---
AM MEDS ADMINISTERED. PT TOLERATED WELL. ADMINISTERED THE PRN FIORICET FOR C/O HEADACHE. WILL REASSESS PT WITHIN AN HOUR.
[2019-03-22] MEDS: ACETAMINOPHEN 325 MG TAB PO PRN ×2 (11:43→18:17)
--- NOTE | 2019-03-22 11:54 | NUR ---
PT IS SPIKING A FEVER 102.2. PRN TYLENOL AND TORADOL ADMINISTERED, COOLING MEASURES IN PLACE (ICE PACKS). DR CAMPOVERDE NOTIFIED. WILL CONTINUE TO MONITOR PT.
[2019-03-22 12:00] VITALS: BP 134/85
--- NOTE | 2019-03-22 12:38 | NUR ---
PT'S TEMP IS 99.2 AT THIS TIME (ORAL). PT EATING LUNCH AND STATES THAT HE IS FEELING "A LITTLE BETTER"
[2019-03-22] MEDS: MEROPENEM 1,000 MG in NACL 0.9% 100 ML IV SCH ×3 (15:13→23:46)
[2019-03-22] MEDS: POTASSIUM CHL 20 MEQ/D5-1/2NS 1,000 ML IV SCH (15:29)
[2019-03-22] MEDS ORDERED: BISACODYL 5 MG TABEC PO SCH (15:30)
[2019-03-22 16:00] VITALS: BP 106/69
[2019-03-22] MEDS ORDERED: POTASSIUM CHLORIDE 10 MEQ TABER PO SCH (16:20)
--- NOTE | 2019-03-22 16:28 | NUR ---
03/22/19 RD INITIAL ASSESSMENT COMPLETED PLEASE REFER TO NUTRITION ASSESSMENT UNDER CARE ACTIVITY FOR ESTIMATED NUTRITIONAL NEEDS. 1. CONTINUE SOFT DIET TOLERATED 2. ENCOURAGE INCREASING PO INTAKE 3. RD WILL F/U WITH NUTRITION EDUCATION FOR DIVERTICULITIS 4. RD TO FOLLOW-UP 3-5 DAYS, MODERATE RISK IVAN OLIVARES, [facility]
--- NOTE | 2019-03-22 16:36 | NUR ---
PT TAKING A SHOWER
--- NOTE | 2019-03-22 18:19 | NUR ---
PT'S TEMP IS 100.0 AT THIS TIME. PRN TYLENOL ADMINISTERED. WILL REASSESS TEMP
--- NOTE | 2019-03-22 19:05 | NUR ---
TEMP IS 99.5 (ORAL) AT THIS TIME. PT IS SITTING UP IN BED, NO DISTRESS, VISITING AT BEDSIDE.
--- NOTE | 2019-03-22 19:20 | NUR ---
WA ENDORSED TO MARINA PORTER NURSE IN STABLE CONDITION.
--- NOTE | 2019-03-22 19:21 | NUR ---
RECD. RESTING IN BED, AWAKE, A/OX4. RESPIRATION EVEN AND UNLABORED. IV OF D51/2 NS +20 MEQ KCL INFUSING AT 80 ML/HR, RIGHT AC G18, WITH RIGHT FOREARM G22, SALINE LOCK. TEMPERATURE CHECKED - TEMPORAL 100.6, ORAL - 100 F. DENIES PAIN 0/10. REFUSED ICE PACKS. WILL CONTINUE TO MONITOR FOR FEVER. PLAN OF CARE FOR THE SHIFT DISCUSSED. VERBALIZED UNDERSTANDING.
[2019-03-22 20:00] VITALS: BP 122/83
--- NOTE | 2019-03-22 21:00 | NUR ---
Patient's Plan of Care was discussed and reviewed with FITNESS TRAINER: ENZO RIDDLE
--- NOTE | 2019-03-22 21:20 | NUR ---
TEMPERATURE CHECKED -101.00 BY ORAL, MEDICATED WITH TORADOL PER MD ORDER BY GUIDO OLSON.
[2019-03-22] MEDS: LORazepam 1 MG TAB PO PRN (22:57)
--- NOTE | 2019-03-22 22:57 | NUR ---
WITH ANXIETY, MEDICATED WITH ATIVAN PO ORDERED BY .
--- NOTE | 2019-03-22 23:00 | NUR ---
TEMPERATURE CHECKED - 98.5 BY ORAL. PATIENT RESTING COMFORTABLY IN BED.
[2019-03-23] VITALS: BP 120/71
[2019-03-23] MEDS ORDERED: ZOLPIDEM 10 MG TAB PO SCH
--- NOTE | 2019-03-23 01:00 | NUR ---
SLEEPING COMFORTABLY IN BED.
[2019-03-23] MEDS: ACETAMINOPHEN 325 MG TAB PO PRN (03:46)
--- NOTE | 2019-03-23 03:46 | NUR ---
TEMPERATURE CHECKED - 102.0, MEDICATED WITH TYLENOL ORDERED BY MD. COOLING MEASURES GIVEN.
[2019-03-23 04:00] VITALS: BP 116/85
--- NOTE | 2019-03-23 06:46 | NUR ---
TEMPERATURE CHECKED - 99.0 F. CONDITION REMAIN STABLE. WILL ENDORSE TO AM SHIFT NURSE FOR MONITORING OF TEMPERATURE AND FOR CONTINUITY OF CARE.
--- NOTE | 2019-03-23 07:30 | NUR ---
RECEIVED REPORT FROM NIGHT NURSE. PT IS ASLEEP, EASILY AROUSABLE. RESPIRATION EVEN AND UNLABORED. IV INTACT AND PATENT TO RIGHT AC AND RIGHT FOREARM. PLANS OF CARE DISCUSSED. BED IN LOW POSITION. CALL LIGHT WITHIN REACH.
[2019-03-23 07:37] LABS: HEMATOCRIT 36.5 % (36-52); HEMOGLOBIN 12.5 g/dL (12.0-18.0); MEAN CORPUSCULAR HEMOGLOBIN 31 pg (27-31); MEAN CORPUSCULAR HGB CONC 34 g/dL (33-37); MEAN CORPUSCULAR VOLUME 90.6 fL (80-94); PLATELET COUNT (AUTO) 191 K/uL (140-450); RED BLOOD CELL COUNT(AUTO) 4.02 MIL/uL (4.20-6.10); RED CELL DISTRIBUTION WIDTH 12.4 % (11.6-13.7)
[2019-03-23 08:00] VITALS: BP 125/81
[2019-03-23] MEDS: FOLIC ACID 1 MG TAB PO SCH (08:21)
[2019-03-23] MEDS: MULTIVITAMIN 1 TAB PO SCH (08:21)
[2019-03-23] MEDS: LACTOBACILLUS RHAMNOSUS GG 1 EACH CAP PO SCH (08:21)
[2019-03-23] MEDS: FAMOTIDINE 20 MG TAB PO SCH ×2 (08:21→21:13)
[2019-03-23] MEDS: THIAMINE 100 MG TAB PO SCH (08:22)
[2019-03-23] MEDS: POLYETHYLENE GLYCOL 17 GM/PKT PO SCH ×3 (08:22→21:13)
[2019-03-23] MEDS: PANTOPRAZOLE 40 MG TABEC PO SCH (08:22)
[2019-03-23] MEDS: POTASSIUM CHL 20 MEQ/D5-1/2NS 1,000 ML IV SCH ×2 (08:31→16:05)
[2019-03-23 09:09] LABS: LYMPHOCYTES % (MANUAL) 19 % (20-46); MONOCYTES % (MANUAL) 3 % (5-12)
--- NOTE | 2019-03-23 09:30 | NUR ---
AM MEDICATIONS GIVEN. PATIENT IS AWAKE, ALERT AND ORIENTED X4. IV INTACT AND PATENT TO RIGHT AC AND RFA. PATIENT CONTINUES TO BE NPO EXCEPT MEDICATIONS. NO S/S OF DISTRESS NOTED. PATIENT ABLE TO MAKE NEEDS KNOWN. CALL LIGHT WITHIN REACH. BED IN LOW POSITION.
[2019-03-23] MEDS: MORPHINE SULFATE 2 MG/ML SYR IVP PRN (10:55)
[2019-03-23 11:05] LABS: ANION GAP 14.8 (8-16); CARBON DIOXIDE 22.6 mmol/L (21-32); POTASSIUM 3.4 mmol/L (3.5-5.1)
[2019-03-23 11:06] LABS: ALBUMIN 2.8 g/dL (3.4-5.0); CREATININE 1.2 mg/dL (0.7-1.3); MAGNESIUM 2.1 mg/dL (1.8-2.4); PHOSPHORUS 3.3 mg/dL (2.5-4.9); TOTAL BILIRUBIN 0.7 mg/dL (0.0-1.0)
--- NOTE | 2019-03-23 11:30 | NUR ---
PATIENT IS AWAKE, ALERT AND ORIENTED X4. IV INTACT AND PATENT TO RIGHT AC WITH IVF D5/0.45%NS/KCL 20MEQ @ 80ML/HR AND RFA IV INTACT AND PATENT WITH SALINE LOCK. PATIENT CONTINUES TO BE NPO EXCEPT MEDICATIONS. NO S/S OF DISTRESS NOTED. PATIENT ABLE TO MAKE NEEDS KNOWN. CALL LIGHT WITHIN REACH. BED IN LOW POSITION.
[2019-03-23 12:00] VITALS: BP 121/73
--- NOTE | 2019-03-23 13:30 | NUR ---
PATIENT IS AWAKE, ALERT AND ORIENTED X4. IV INTACT AND PATENT TO RIGHT AC AND RFA. PATIENT CONTINUES TO BE NPO EXCEPT MEDICATIONS. NO S/S OF DISTRESS NOTED. TEMP 99.9, COOLING MEASURES PROVIDED. PATIENT IS STABLE AND ABLE TO MAKE NEEDS KNOWN. PATIENT AMBULATED TO THE RESTROOM WITH STANDBY ASSIST. CALL LIGHT WITHIN REACH. BED IN LOW POSITION. AT BEDSIDE.
--- NOTE | 2019-03-23 15:30 | NUR ---
PATIENT IS AWAKE, ALERT AND ORIENTED X4. PATIENT IS SITTING NO THE SIDE OF THE BED WITH NO S/S OF DISTRESS NOTED. PATIENT ABLE TO MAKE NEEDS KNOWN. CALL LIGHT WITHIN REACH. BED IN LOW POSITION. AT BEDSIDE.
[2019-03-23] MEDS: MEROPENEM 1,000 MG in NACL 0.9% 100 ML IV SCH (15:48)
[2019-03-23 16:00] VITALS: BP 118/72
--- NOTE | 2019-03-23 16:30 | NUR ---
PATIENT NOTED WITH ELEVATED TEMP 100.5. WILL MEDICATE WITH TORADOL IVP ORDERED FOR FEVER >100.0.
[2019-03-23] MEDS: KETOROLAC 15 MG/ML VIAL IVP PRN (16:47)
--- NOTE | 2019-03-23 18:00 | NUR ---
PATIENT AMBULATED FROM THE ROOM TO THE HALLWAYS AROUND THE UNIT WITH STEADY GAIT AND STANDBY ASSIST.
--- NOTE | 2019-03-23 19:00 | NUR ---
PATIENT IS IN STABLE CONDITION. WILL ENDORSE TO NIGHT NURSE FOR CONTINUITY OF CARE.
--- NOTE | 2019-03-23 19:30 | NUR ---
RECEIVED FROM AM RN IN BED AWAKE AND ALERT. NO SOB. DENIES ANY PAIN AT THIS TIME. CALL LIGHT WITH IN REACH AND CARE PLANS FOR THE NIGHT DISCUSSED WITH HIM. TELEMETRY MONITORING. NSR IN TELEMETRY CARDIAC 65. NO ECTOPY NOTED.
[2019-03-23 20:00] VITALS: BP 119/70
[2019-03-23] MEDS ORDERED: LEVOFLOXACIN 750 MG/D5W PREMIX 150 ML IV SCH (20:00)
[2019-03-23] MEDS: SENNA 8.6 MG TAB PO SCH ×2 (21:00→21:20)
--- NOTE | 2019-03-23 21:33 | NUR ---
PT. REFUSED HIS SENOKOT AND MIRALAX WHEN EXPLAINED USE FOR IT. SPOUSE AT BEDSIDE.
--- NOTE | 2019-03-23 21:54 | NUR ---
RESIDENT MD THAKKAR AWARE OF PT. REFUSED MIRALAX AND SENOKOT AT THIS TIME. PT. PROVIDED WITH ICE CHIPS REQUESTED. AFEBRILE. 98.6 PER ORAL. REQUESTED FOR SLEEPING PILL AND MD STATED HE WILL ORDER ONE.
[2019-03-23] MEDS ORDERED: ZOLPIDEM 10 MG TAB PO PRN (22:10)
[2019-03-23] MEDS ORDERED: ZOLPIDEM 10 MG TAB ONE (22:39)
[2019-03-23] MEDS: metroNIDAZOLE 500 MG/NS PREMIX 100 ML IV SCH (22:41)
[2019-03-24] MEDS ORDERED: MEROPENEM 1,000 MG in NACL 0.9% 100 ML IV SCH ×2
--- NOTE | 2019-03-24 00:02 | NUR ---
SLEEPING AT THIS TIME. WAKES UP WHEN TOUCHED. VITAL SIGNS TAKEN. PT. SLEPT POST AMBIEN MEDICATION. CALL LIGHT WITH IN REACH AND ON TELEMETRY MONITORING.
[2019-03-24 00:08] VITALS: BP 118/71
[2019-03-24] MEDS: POTASSIUM CHL 20 MEQ/D5-1/2NS 1,000 ML IV SCH (01:05)
--- NOTE | 2019-03-24 02:00 | NUR ---
PT ASLEEP, NO S/S OF PAIN OR DISTRESS NOTED. BED LOW AND CALL MCDOWELL IN REACH.
--- NOTE | 2019-03-24 02:35 | NUR ---
SLEEPING WELL. NO RESTLESSNESS. CALL LIGHT WITH IN REACH. TELEMETRY MONITORING.
[2019-03-24 04:52] VITALS: BP 120/73
[2019-03-24] MEDS: metroNIDAZOLE 500 MG/NS PREMIX 100 ML IV SCH ×3 (05:14→20:34)
--- NOTE | 2019-03-24 05:25 | NUR ---
SLEPT WELL. PT. ABLE TO VERBALIZE NEEDS WELL. AFEBRILE AT THIS TIME. NO COMPLAINTS OF ANY PAIN DONE. IV ABT NEWLY ADMINISTERED AND ORDERED NOTED WITH OUT ANY ADVERSE REACTIONS.
--- NOTE | 2019-03-24 06:25 | NUR ---
PT. SLEPT WELL THIS SHIFT. AWAKE AND ALERT. ABLE TO VERBALIZE NEEDS WELL. NO SOB. NO PAIN COMPLAINTS AT THIS TIME. TELEMETRY MONITORING.
[2019-03-24 06:45] LABS: BASOPHILS % (AUTO) 0.2 % (0.0-2.0); EOSINOPHILS % (AUTO) 0.6 % (0.0-4.0); HEMATOCRIT 38.4 % (36-52); HEMOGLOBIN 13.1 g/dL (12.0-18.0); LYMPHOCYTES # (AUTO) 0.6 K/uL (2.0-11.5); LYMPHOCYTES % (AUTO) 25.6 % (20.5-51.1); MEAN CORPUSCULAR HEMOGLOBIN 31 pg (27-31); MEAN CORPUSCULAR HGB CONC 34 g/dL (33-37); MEAN CORPUSCULAR VOLUME 90.9 fL (80-94); MONOCYTES # (AUTO) 0.4 K/uL (0.8-1.0); MONOCYTES % (AUTO) 15.1 % (1.7-9.3); NEUTROPHILS # (AUTO) 1.5 K/uL (1.8-7.7); NEUTROPHILS % (AUTO) 58.5 % (42.2-75.2); PLATELET COUNT (AUTO) 203 K/uL (140-450); RED BLOOD CELL COUNT(AUTO) 4.22 MIL/uL (4.20-6.10); RED CELL DISTRIBUTION WIDTH 12.2 % (11.6-13.7); WHITE BLOOD COUNT (AUTO) 2.5 K/uL (4.8-10.8)
[2019-03-24 06:57] LABS: CARBON DIOXIDE 26.2 mmol/L (21-32); CREATININE 1.3 mg/dL (0.7-1.3); POTASSIUM 4.2 mmol/L (3.5-5.1)
[2019-03-24 07:03] LABS: MAGNESIUM 2.1 mg/dL (1.8-2.4); PHOSPHORUS 3.7 mg/dL (2.5-4.9)
--- NOTE | 2019-03-24 07:54 | NUR ---
RECEIVED REPORT FROM TABLE OPERATOR RN FOR CONTINUITY OF CARE. PT IS AAOX4, COOPERATIVE. PT AMBULATORY. PT SKIN INTACT. IV IN THE RIGHT AC 18G AND RIGHT FA 22G. PATENT AND INTACT. PT ON CLEAR LIQUID DIET. ON RA. LAST BM WAS 2X THIS MORNING. DISCUSSED POC WITH PT AND PT VERBALIZED UNDERSTANDING. BOARD UPDATED. BED IN LOW POSITION, CALL LIGHT WITHIN REACH. WILL ROUND FREQUENTLY ON PT.
[2019-03-24 08:00] VITALS: BP 104/69
--- NOTE | 2019-03-24 09:47 | NUR ---
ADMINISTERED MORNING MEDS TO PT. PT TOLERATED WELL. ALL NEEDS MET. WILL CONTINUE TO ROUND FREQUENTLY ON PT. BED IN LOW POSITION, CALL LIGHT WITHIN REACH.
[2019-03-24] MEDS: POLYETHYLENE GLYCOL 17 GM/PKT PO SCH ×2 (10:30→10:37)
[2019-03-24] MEDS ORDERED: SENNA 8.6 MG TAB PO SCH (10:30)
[2019-03-24] MEDS: MULTIVITAMIN 1 TAB PO SCH (10:37)
[2019-03-24] MEDS: LACTOBACILLUS RHAMNOSUS GG 1 EACH CAP PO SCH (10:37)
[2019-03-24] MEDS: FAMOTIDINE 20 MG TAB PO SCH (10:37)
[2019-03-24] MEDS: THIAMINE 100 MG TAB PO SCH (10:37)
[2019-03-24] MEDS: SENNA 8.6 MG TAB PO SCH (10:37)
[2019-03-24] MEDS: FOLIC ACID 1 MG TAB PO SCH (10:38)
--- NOTE | 2019-03-24 11:32 | NUR ---
PT RESTING IN BED WITH FAMILY AT BEDSIDE. ALL NEEDS MET. WILL CONTINUE TO ROUND FREQUENTLY ON PT. BED IN LOW POSITION, CALL LIGHT WITHIN REACH.
[2019-03-24 12:00] VITALS: BP 103/59
--- NOTE | 2019-03-24 13:22 | NUR ---
PT RESTING. ALL NEEDS MET. PT DENIES PAIN OR SOB. WILL CONTINUE TO ROUND FREQUENTLY ON PT.
--- NOTE | 2019-03-24 15:30 | NUR ---
PT SLEEPING. ALL NEEDS MET. WILL CONTINUE TO ROUND FREQUENTLY ON PT. BED IN LOW POSITION, CALL LIGHT WITHIN REACH.
[2019-03-24 16:00] VITALS: BP 108/64
--- NOTE | 2019-03-24 17:41 | NUR ---
PT RESTING IN BED WITH FRIEND AT BEDSIDE. ALL NEEDS MET. WILL CONTINUE TO ROUND FREQUENTLY ON PT.
--- NOTE | 2019-03-24 19:30 | NUR ---
RECEIVED REPORT FORM JR LORA DAYSHIFT NURSE AT BEDSIDE FOR CONTINUITY OF CARE, PT IN STABLE CONDITION.
--- NOTE | 2019-03-24 19:31 | NUR ---
ENDORSED PT TO SENIOR CYBER INTELLIGENCE ANALYST FOR CONTINUITY OF CARE. PT IN STABLE CONDITION AT THIS TIME.
[2019-03-24 20:00] VITALS: BP 100/67
--- NOTE | 2019-03-24 20:00 | NUR ---
PT IN BED AOX4 FLUENT [employer] [employer] [employer] SPEAKING. PT HAS 2 IV SITES 1 ON RAC 18G AND R/FA 22G . RAC BOTH IV SITES ARE SALINE LOCKED, RAC 18 GUAGE FLUSHED PATENT AND ASYMPTOMATIC. PT C/O WHEN WENT TO FLUSH R/FA 22G. ALSO IV SITE WOULD NOT FLUSH. R/FA IV SITE REMOVED, CANNULA CAME OUT INTACT. PT HAS NO OTHER C/O VOICED AT THIS TIME, NO C/O OF ABD PAIN, BOWEL SOUNDS POSITIVE IN AL 4 QUADS. V/S FOLLOWS: T 98.8 P 63 R 18 B/P 100/67 02 96% ON ROOM AIR . ALL UNIVERSAL FALLS PRECAUTIONS IN PLACE.
[2019-03-24] MEDS ORDERED: FAMOTIDINE 20 MG TAB PO SCH (20:55)
[2019-03-24] MEDS ORDERED: LEVOFLOXACIN 750 MG/D5W PREMIX 150 ML IV SCH (21:00)
--- NOTE | 2019-03-24 21:00 | NUR ---
PT C/O OF REGURGITATION DUE TO THE ACID IN THE COFFEE AND TOMATO SOUP, PT REQUESTED PRN MEDICATION TO FEEL BETTER, WILL SPEAK WITH RESIDENT MD FOR A NEW PRN ORDER. FLAGYL HUNG AND RUNNING AT 100MLS/HR ORDERED.
[2019-03-24] MEDS ORDERED: LEVO750T2 PO (21:33)
[2019-03-24] MEDS ORDERED: METR500T1 PO (21:33)
[2019-03-24] MEDS ORDERED: POLY17PD46 PO (21:33)
[2019-03-24] MEDS ORDERED: FAMO20TA13 PO (21:33)
[2019-03-24] MEDS ORDERED: LACT10CA PO (21:33)
--- NOTE | 2019-03-24 22:15 | NUR ---
SPOKE WITH MD CAMPOVERDE WHO ORDERED A PEPCID [id number]. PT WAS ALSO GIVEN REQUESTED AMBIEN PO/PRN TO HELP HIM SLEEP. LEVAQUIN WAS HUNG AND IS RUNNING AT 100MLS/HR ORDERED. PT IS IN BED AND SPEAKING WITH ROOM MATE, NO OTHER C/O VOICED, IV SITE ON R AC INTACT AND ASYMPTOMATIC. ALL UNIVERSAL FALLS PRECAUTIONS IN PLACE.
[2019-03-25] VITALS: BP 103/59
--- NOTE | 2019-03-25 00:30 | NUR ---
PT IN BED ASLEEP NO S/S OF PAIN OR DISTRESS NOTED. V/S FOLLOWS; T 97.5 P 62 R 18 B/P 103/59 02 95% ON ROOM AIR. ALL REQUESTED NEEDS ATTENDEE BY STAFF AND CALL MCDOWELL IN REACH.
[2019-03-25 04:00] VITALS: BP 98/61
--- NOTE | 2019-03-25 04:30 | NUR ---
PT IN BED ASLEEP BUT AROUSABLE TO NAME AND LIGHT TOUCH, NO C/O VOICED V/S FOLLOWS: T 97.8 P 55 R 18 B/P 98/61 02 96% ON ROOM AIR. FLAGYL HUNG AND RUNNING ORDERED. AT 10MLS/HR. ALL UNIVERSAL PRECAUTIONS IN PLACE.
[2019-03-25] MEDS: metroNIDAZOLE 500 MG/NS PREMIX 100 ML IV SCH ×2 (05:17→12:42)
[2019-03-25 06:58] LABS: ANION GAP 12.1 (8-16); CARBON DIOXIDE 27.1 mmol/L (21-32); CREATININE 1.2 mg/dL (0.7-1.3); POTASSIUM 4.2 mmol/L (3.5-5.1)
[2019-03-25 06:59] LABS: MAGNESIUM 2.2 mg/dL (1.8-2.4)
[2019-03-25] MEDS ORDERED: HYDR-5122 PO ×2 (07:15→07:16)
--- NOTE | 2019-03-25 07:15 | NUR ---
RECEIVED PT FROM FUNERAL PRE ARRANGEMENT SPECIALIST NURSE, MIMA, PT IS AWAKE AND LYING ON THE BED WITH SIDE RAILS UP AND CALL LIGHT WITHIN REACH, IV LINE ON THE RT AC G.18 WITH IVF NS INFUSING AT 10ML/HR, PT DENIES PAIN AND NO SOB NOTED, AOX4 AND ON ROOM AIR, WILL MONITOR PT.
[2019-03-25 07:44] LABS: BASOPHILS % (AUTO) 0.3 % (0.0-2.0); EOSINOPHILS % (AUTO) 0.8 % (0.0-4.0); HEMATOCRIT 39.5 % (36-52); HEMOGLOBIN 13.4 g/dL (12.0-18.0); LYMPHOCYTES # (AUTO) 0.8 K/uL (2.0-11.5); LYMPHOCYTES % (AUTO) 27.8 % (20.5-51.1); MEAN CORPUSCULAR HEMOGLOBIN 31 pg (27-31); MEAN CORPUSCULAR HGB CONC 34 g/dL (33-37); MONOCYTES # (AUTO) 0.3 K/uL (0.8-1.0); MONOCYTES % (AUTO) 11.6 % (1.7-9.3); NEUTROPHILS # (AUTO) 1.7 K/uL (1.8-7.7); NEUTROPHILS % (AUTO) 59.5 % (42.2-75.2); PLATELET COUNT (AUTO) 208 K/uL (140-450); RED BLOOD CELL COUNT(AUTO) 4.34 MIL/uL (4.20-6.10); RED CELL DISTRIBUTION WIDTH 12.2 % (11.6-13.7); WHITE BLOOD COUNT (AUTO) 2.8 K/uL (4.8-10.8)
[2019-03-25 08:00] VITALS: BP 101/65
[2019-03-25] MEDS: POLYETHYLENE GLYCOL 17 GM/PKT PO SCH (09:09)
[2019-03-25] MEDS: LACTOBACILLUS RHAMNOSUS GG 1 EACH CAP PO SCH (09:12)
[2019-03-25] MEDS: MULTIVITAMIN 1 TAB PO SCH (09:12)
--- NOTE | 2019-03-25 09:12 | NUR ---
PT WAS GIVEN THE SCHEDULED AM MEDICATIONS AND TOLERATED, WILL MONITOR PT.
[2019-03-25] MEDS: THIAMINE 100 MG TAB PO SCH (09:14)
[2019-03-25] MEDS: FOLIC ACID 1 MG TAB PO SCH (09:14)
[2019-03-25 12:00] VITALS: BP 126/80
--- NOTE | 2019-03-25 12:42 | NUR ---
PT WAS GIVEN FLAGYL NOW IVPB AND WAS SERVED A REGULAR DIET.
[2019-03-25 16:00] VITALS: BP 107/62
--- NOTE | 2019-03-25 16:46 | NUR ---
DISCHARGED PT TO HOME WITH , DISCHARGED AND DIETARY TEACHING REGARDING DIVERTICULITIS WERE GIVEN TO PT AND VERBALIZED UNDERSTANDING, IV LINE AND ARM BAND REMOVED AND PT DENIES PAIN AND IS STABLE AT THIS TIME
== END 2019-03-25 17:25 | disposition home or self-care (01) | DRG 720 ==
LOC: MED 15:01 → MTU 19:55
PROVIDERS: ADMIT General Practice; ATTEND General Practice
DX: A41.9 Sepsis, unspecified organism (principal); K65.9 Peritonitis, unspecified; K57.20 Diverticulitis of large intestine with perforation and abscess without bleeding; E83.42 Hypomagnesemia; E87.1 Hypo-osmolality and hyponatremia; J98.11 Atelectasis; E87.6 Hypokalemia; F17.210 Nicotine dependence, cigarettes, uncomplicated; E78.1 Pure hyperglyceridemia; K29.70 Gastritis, unspecified, without bleeding; K21.9 Gastro-esophageal reflux disease without esophagitis; F10.10 Alcohol abuse, uncomplicated; E86.0 Dehydration; Y90.0 Blood alcohol level of less than 20 mg/100 ml; E78.5 Hyperlipidemia, unspecified; T36.1X5A Adverse effect of cephalosporins and other beta-lactam antibiotics, initial encounter; Z80.3 Family history of malignant neoplasm of breast; Y92.89 Other specified places as the place of occurrence of the external cause
CPT/HCPCS: 36415; 71045; 71046; 74018; 80048; 80053; 80305; 81003; 82150; 82272; 83036; 83605; 83690; 83735; 83880; 84100; 84436; 84439; 84443; 84479; 84484; 85025; 85610; 85730; 86140; 87040; 87081; 87086; 96361; 96374; 96375; 99285; G0482; J1885; J1956; J2001; J2185; J2270; J2405; J2543; J3475; J3480; J3490; J7030; J7060; Q0092; Q9967

== ENCOUNTER 2021-06-06 11:33 | Emergency (ER) | payer MEDICAID ==
[~2021-06-06] VITALS: Ht 165.1 cm; Wt 80.7 kg
[~2021-06-06 11:33] MED LIST: ASPI81CT95 PO; ATOR40TA PO; LIB25 PO; METF-924 PO; MULT-405 PO; OMEP20EC11 PO
[2021-06-06 11:35] VITALS: BP 134/94
--- NOTE | 2021-06-06 11:46 | NUR ---
Patient ambulated to bed 8
--- NOTE | 2021-06-06 11:51 | NUR ---
Dr. Staples evaluating patient at bedside.
[2021-06-06] MEDS ORDERED: THO25 PO (12:00)
--- NOTE | 2021-06-06 12:01 | NUR ---
45 y/o male came in with c/o hiccups x 4 days. Patient states, "he is starting to have diffculty eating, drinking and sleeping from continous hiccuping." Patient states hiccuping is causing chest discomfort and episodes of vomiting. Patient was hospitalizaed here from 05/25/21-05/29/21. Medical history: HTN, Stroke Medications: Lipitor, ASA, Metformin, Losartan, Librium NKDA
--- NOTE | 2021-06-06 12:03 | NUR ---
45/M PRESENTS TO ED WITH C/O HICCUPS X4 DAYS. PATIENT STATES CAME ON SUDDENLY AND HAS NOT FOUND RELIEF, STATING EATING AND DRINKING HAS BEEN INCREASINGLY MORE DIFFICULT. PATIENT REPORTS HE RECENTLY HAS BEEN PLACED ON SEVERAL NEW MEDICATIONS AND STATES UNSURE IF THERE IS A RELATION. DENIES. N/V/D, CP, SOB.
--- NOTE | 2021-06-06 12:12 | NUR ---
Patient discharged with v/s stable. Written and verbal after care instructions given. Patient alert, oriented and verbalized understanding of instructions. Ambulatory with steady gait. All questions addressed prior to discharge. ID band removed. Patient advised to follow up with PMD. Rx of Thorazine given. Opportunity to ask questions provided and answered.
[2021-06-06 12:14] VITALS: BP 134/94
--- NOTE | 2021-06-06 12:15 | NUR ---
The patient's care was reviewed and supervised by Trena Bauman RN.
== END 2021-06-06 12:12 | disposition home or self-care (01) ==
LOC: MED 11:33
DX: R06.6 Hiccough (principal); R11.10 Vomiting, unspecified; R07.89 Other chest pain; E11.9 Type 2 diabetes mellitus without complications; I10 Essential (primary) hypertension; Z79.84 Long term (current) use of oral hypoglycemic drugs; Z79.82 Long term (current) use of aspirin; Z79.899 Other long term (current) drug therapy; Z86.73 Personal history of transient ischemic attack (TIA), and cerebral infarction without residual deficits
CPT/HCPCS: 99283

== ENCOUNTER 2021-09-05 22:57 | Emergency (ER) | payer MEDICAID ==
[~2021-09-05] VITALS: Ht 165.1 cm; Wt 81.4 kg
[~2021-09-05 22:57] MED LIST changes: +THO25 PO
[2021-09-05 23:11] VITALS: BP 180/110
--- NOTE | 2021-09-05 23:14 | NUR ---
PT TAKEN TO BED 6.
[2021-09-06] MEDS ORDERED: KETOROLAC 60 MG/2 ML VIAL IM ONE
--- NOTE | 2021-09-06 00:28 | NUR ---
45 Y.O MALE BIB SELF FOR DECREASED URINATION X2 DAYS . PT STATES HE KEEPS DRINKING WATER BUT HAS HARDLY WENT TO RESTROOM . PT HAD A STROKE ABOUT 2/3 MONTHS AGO. PT STATES WHEN HE DID MAKE URINE IT WAS ORANGE. DENIES N/V/D; SKIN IS PINK/WARM/DRY; AAOX4 WITH EVEN AND STEADY GAIT; DENIES FEVER, SOB, OR COUGH AT THIS TIME; PT STATES PAIN 6/10, CHEST PAIN WHEN BREATHING. PMH: HTM, DM2, GASTRITIS, TRIGLYCERIDES, POSSIBLE CIRRHOSIS RX:LOSARTAN , METFORMIN NKA
[2021-09-06 00:43] LABS: APPEARANCE,URINE CLEAR (CLEAR); BILIRUBIN,URINE NEGATIVE (NEGATIVE); BLOOD, URINE NEGATIVE (NEGATIVE); COLOR,URINE YELLOW (YELLOW); LEUKOCYTE ESTERASE ,URINE NEGATIVE (NEGATIVE); NITRITE, URINE NEGATIVE (NEGATIVE); PH,URINE 5.5 (5.0-9.0); UGLUCOSE NEGATIVE (NEGATIVE)
[2021-09-06 01:00] LABS: ALBUMIN 4.1 g/dL (3.4-5.0); ANION GAP 11.7 (8-16); CARBON DIOXIDE 27.8 mmol/L (21-32); CREATININE 1.2 mg/dL (0.6-1.3); POTASSIUM 3.5 mmol/L (3.5-5.1); TOTAL BILIRUBIN 2.5 mg/dL (0.0-1.0)
[2021-09-06 01:11] LABS: BASOPHILS % (AUTO) 0.5 % (0.0-2.0); EOSINOPHILS # (AUTO) 0.1 K/uL (0-0.4); EOSINOPHILS % (AUTO) 3.2 % (0.0-4.0); HEMATOCRIT 43.2 % (36-52); HEMOGLOBIN 15.1 g/dL (12.0-18.0); LYMPHOCYTES # (AUTO) 0.7 K/uL (2.0-11.5); LYMPHOCYTES % (AUTO) 18.1 % (20.5-51.1); MEAN CORPUSCULAR HEMOGLOBIN 32 pg (27-31); MEAN CORPUSCULAR HGB CONC 35 g/dL (33-37); MEAN CORPUSCULAR VOLUME 91.6 fL (80-94); MONOCYTES # (AUTO) 0.3 K/uL (0.8-1.0); MONOCYTES % (AUTO) 8.7 % (1.7-9.3); NEUTROPHILS # (AUTO) 2.8 K/uL (1.8-7.7); NEUTROPHILS % (AUTO) 69.5 % (42.2-75.2); PLATELET COUNT (AUTO) 125 K/uL (140-450); RED BLOOD CELL COUNT(AUTO) 4.71 MIL/uL (4.20-6.10); RED CELL DISTRIBUTION WIDTH 13.9 % (11.6-13.7)
--- NOTE | 2021-09-06 01:34 | NUR ---
pt family at bedside
[2021-09-06] MEDS ORDERED: NACL 0.9% 1,000 ML IV ONE (01:35)
[2021-09-06] MEDS ORDERED: KETO10TA2 PO (01:38)
--- NOTE | 2021-09-06 02:22 | NUR ---
pt ambulate to bathroom
[2021-09-06 02:50] VITALS: BP 137/105
--- NOTE | 2021-09-06 02:50 | NUR ---
Patient discharged with v/s stable. Written and verbal after care instructions given and explained. Patient alert, oriented and verbalized understanding of instructions. Ambulatory with steady gait. All questions addressed prior to discharge. ID band removed. Patient advised to follow up with PMD. Rx of toradol given. Opportunity to ask questions provided and answered.
--- NOTE | 2021-09-06 03:11 | NUR ---
The patient's care was reviewed and supervised by Shayna Melo RN.
== END 2021-09-06 02:50 | disposition home or self-care (01) ==
LOC: MED 22:57
DX: M54.50 Low back pain, unspecified (principal); E11.9 Type 2 diabetes mellitus without complications; I10 Essential (primary) hypertension; Z79.4 Long term (current) use of insulin; Z79.899 Other long term (current) drug therapy; Z86.73 Personal history of transient ischemic attack (TIA), and cerebral infarction without residual deficits
CPT/HCPCS: 36415; 80053; 81003; 85025; 96360; 96372; 99285; J1885; J7030

== ENCOUNTER 2021-12-21 15:39 | Emergency (ER) | payer MEDICAID ==
[~2021-12-21] VITALS: Ht 165.1 cm; Wt 77.1 kg
[~2021-12-21 15:39] MED LIST changes: +KETO10TA2 PO
--- NOTE | 2021-12-21 16:10 | NUR ---
COVID, FLU SWAB DONE.
[2021-12-21 16:11] VITALS: BP 156/91
--- NOTE | 2021-12-21 17:00 | NUR ---
BIB NITO C/O LLQ ABD PAIN, DIZZINESS, DRUMMOND, BACK PAIN X 3 DAYS. BLOOD SUGAR 182 AT THIS TIME. PMH: DIVERTICULITIS, MINI STROKE, DM, HTN, HLD
[2021-12-21] MEDS ORDERED: MECLIZINE 25 MG TAB PO ONE (17:05)
[2021-12-21 17:46] LABS: BASOPHILS % (AUTO) 0.4 % (0.0-2.0); EOSINOPHILS # (AUTO) 0.2 K/uL (0-0.4); EOSINOPHILS % (AUTO) 2.8 % (0.0-4.0); HEMATOCRIT 45.3 % (36-52); HEMOGLOBIN 16.1 g/dL (12.0-18.0); LYMPHOCYTES # (AUTO) 1.1 K/uL (2.0-11.5); LYMPHOCYTES % (AUTO) 18.6 % (20.5-51.1); MEAN CORPUSCULAR HEMOGLOBIN 32 pg (27-31); MEAN CORPUSCULAR HGB CONC 36 g/dL (33-37); MEAN CORPUSCULAR VOLUME 90.4 fL (80-94); MONOCYTES # (AUTO) 0.3 K/uL (0.8-1.0); MONOCYTES % (AUTO) 5.7 % (1.7-9.3); NEUTROPHILS # (AUTO) 4.4 K/uL (1.8-7.7); NEUTROPHILS % (AUTO) 72.5 % (42.2-75.2); PLATELET COUNT (AUTO) 204 K/uL (140-450); RED BLOOD CELL COUNT(AUTO) 5.01 MIL/uL (4.20-6.10); RED CELL DISTRIBUTION WIDTH 12.5 % (11.6-13.7)
[2021-12-21 18:17] LABS: ALBUMIN 4.3 g/dL (3.4-5.0); ASPARTATE AMINOTRANSFERASE 154 U/L (15-37); CARBON DIOXIDE 25.6 mmol/L (21-32); CREATININE 1.1 mg/dL (0.6-1.3); GFR ARICAN-AMERICAN 92 mL/min (>90); GLUCOSE 127 mg/dL (74-106); TOTAL BILIRUBIN 1.8 mg/dL (0.0-1.0); UREA NITROGEN, BLOOD 16 mg/dL (7-18)
[2021-12-21 18:31] LABS: ANION GAP 13.6 (8-16); CHLORIDE 99 mmol/L (98-107); SODIUM SERUM 135 mmol/L (136-145)
[2021-12-21] MEDS ORDERED: KETOROLAC 30 MG/ML VIAL IM ONE (20:25)
[2021-12-21] MEDS ORDERED: MECL-335 PO (20:40)
[2021-12-21] MEDS ORDERED: HYDR-5080 PO (20:40)
[2021-12-21 21:09] VITALS: BP 145/78
--- NOTE | 2021-12-21 21:09 | NUR ---
Patient discharged with v/s stable. Written and verbal after care instructions given and explained for Vertigo, Lower back sprain and dizziness. Patient alert, oriented and verbalized understanding of instructions. Ambulatory with steady gait. All questions addressed prior to discharge. ID band removed. Patient advised to follow up with PMD. Rx of [place] and Meclizine given. Patient educated on indication of medication including possible reaction and side effects. Opportunity to ask questions provided and answered.
== END 2021-12-21 21:09 | disposition home or self-care (01) ==
LOC: MED 15:39
DX: R42 Dizziness and giddiness (principal); Z20.822 Contact with and (suspected) exposure to COVID-19; M54.50 Low back pain, unspecified; R51.9 Headache, unspecified; E11.9 Type 2 diabetes mellitus without complications; I10 Essential (primary) hypertension; Z79.899 Other long term (current) drug therapy; Z86.73 Personal history of transient ischemic attack (TIA), and cerebral infarction without residual deficits; Z79.84 Long term (current) use of oral hypoglycemic drugs
CPT/HCPCS: 36415; 70450; 80053; 81002; 84484; 85025; 87426; 87804; 93005; 96372; 99285; J1885; J8597

== ENCOUNTER 2022-07-10 15:12 | Emergency (ER) | payer MEDICAID ==
[~2022-07-10] VITALS: Ht 175.3 cm; Wt 76.2 kg
[~2022-07-10 15:12] MED LIST changes: +HYDR-5080 PO; +MECL-335 PO
[2022-07-10 15:33] VITALS: BP 127/79
--- NOTE | 2022-07-10 15:44 | NUR ---
assumed patient care pt aox4 gcs 15 c/o of consuming lots of alcohol last night and not remembering what happened. he states he woke up in a hotel room this am. he states he feel dizzy and lightheaded. pt adds his right arm hurst and he does not recall any trauma.
[2022-07-10] MEDS ORDERED: NACL 0.9% 1,000 ML IV ONE ×2 (15:45→16:15)
[2022-07-10 16:42] LABS: BASOPHILS % (AUTO) 0.2 % (0.0-2.0); EOSINOPHILS # (AUTO) 0.2 K/uL (0-0.4); EOSINOPHILS % (AUTO) 2.8 % (0.0-4.0); HEMATOCRIT 43.9 % (36-52); HEMOGLOBIN 15.4 g/dL (12.0-18.0); LYMPHOCYTES # (AUTO) 1.2 K/uL (2.0-11.5); LYMPHOCYTES % (AUTO) 20.9 % (20.5-51.1); MEAN CORPUSCULAR HEMOGLOBIN 31 pg (27-31); MEAN CORPUSCULAR HGB CONC 35 g/dL (33-37); MEAN CORPUSCULAR VOLUME 86.9 fL (80-94); MONOCYTES # (AUTO) 0.3 K/uL (0.8-1.0); MONOCYTES % (AUTO) 4.6 % (1.7-9.3); NEUTROPHILS # (AUTO) 4.1 K/uL (1.8-7.7); NEUTROPHILS % (AUTO) 71.5 % (42.2-75.2); PLATELET COUNT (AUTO) 182 K/uL (140-450); RED BLOOD CELL COUNT(AUTO) 5.05 MIL/uL (4.20-6.10); RED CELL DISTRIBUTION WIDTH 12.6 % (11.6-13.7); WHITE BLOOD COUNT (AUTO) 5.7 K/uL (4.8-10.8)
[2022-07-10 17:00] LABS: ALBUMIN 4.2 g/dL (3.4-5.0); ANION GAP 14.6 (8-16); CARBON DIOXIDE 25.6 mmol/L (21-32); CREATININE 0.9 mg/dL (0.6-1.3); POTASSIUM 3.2 mmol/L (3.5-5.1); TOTAL BILIRUBIN 1.7 mg/dL (0.0-1.0)
[2022-07-10] MEDS ORDERED: POTASSIUM CHLORIDE 10 MEQ TABER PO ONE ×2 (17:20→17:31)
--- NOTE | 2022-07-10 17:42 | NUR ---
PATIENT D/C ACCORDINGLY WILL FOLLOW UP WITH PRIMARY PROVIDER.
--- NOTE | 2022-07-10 17:43 | NUR ---
Patient discharged with v/s stable. Written and verbal after care instructions given and explained. Patient verbalized understanding. Ambulatory with steady gait. All questions addressed prior to discharge. Advised to follow up with PMD.
[2022-07-10 17:44] VITALS: BP 130/80
== END 2022-07-10 17:47 | disposition home or self-care (01) ==
LOC: MED 15:12
DX: R42 Dizziness and giddiness (principal); E11.9 Type 2 diabetes mellitus without complications; I10 Essential (primary) hypertension; Z86.73 Personal history of transient ischemic attack (TIA), and cerebral infarction without residual deficits; Z79.4 Long term (current) use of insulin; Z79.899 Other long term (current) drug therapy
CPT/HCPCS: 36415; 80053; 83690; 85025; 93005; 96360; 96361; 99284; G0482; J7030

== ENCOUNTER 2022-11-07 19:28 | Emergency (ER) | payer MEDICAID ==
[~2022-11-07] VITALS: Ht 165.1 cm; Wt 79.4 kg
[2022-11-07 19:50] VITALS: BP 134/88; PULSE 71; RESP 17; TEMP 98; O2SAT 96
[2022-11-07 20:55] LABS: BASOPHILS % (AUTO) 0.3 % (0.0-2.0); EOSINOPHILS # (AUTO) 0.3 K/uL (0-0.4); EOSINOPHILS % (AUTO) 4.7 % (0.0-4.0); HEMATOCRIT 42.2 % (36-52); LYMPHOCYTES % (AUTO) 17.6 % (20.5-51.1); MEAN CORPUSCULAR HEMOGLOBIN 31 pg (27-31); MEAN CORPUSCULAR HGB CONC 36 g/dL (33-37); MONOCYTES # (AUTO) 0.4 K/uL (0.8-1.0); MONOCYTES % (AUTO) 6.6 % (1.7-9.3); NEUTROPHILS % (AUTO) 70.8 % (42.2-75.2); PLATELET COUNT (AUTO) 182 K/uL (140-450); RED BLOOD CELL COUNT(AUTO) 4.85 MIL/uL (4.20-6.10); WHITE BLOOD COUNT (AUTO) 5.6 K/uL (4.8-10.8)
[2022-11-07 20:57] LABS: APPEARANCE,URINE CLEAR (CLEAR); BILIRUBIN,URINE NEGATIVE (NEGATIVE); BLOOD, URINE NEGATIVE (NEGATIVE); COLOR,URINE YELLOW (YELLOW); LEUKOCYTE ESTERASE ,URINE NEGATIVE (NEGATIVE); NITRITE, URINE NEGATIVE (NEGATIVE); PROTEIN,URINE NEGATIVE (NEGATIVE); UGLUCOSE NEGATIVE (NEGATIVE); UROBILINOGEN,URINE 0.2 EU/dL (0.2 - 1)
[2022-11-07 21:10] LABS: ALBUMIN 4.2 g/dL (3.4-5.0); ANION GAP 12.1 (8-16); CALCIUM 8.8 mg/dL (8.5-10.1); CARBON DIOXIDE 26.8 mmol/L (21-32); CREATININE 1.2 mg/dL (0.6-1.3); POTASSIUM 3.9 mmol/L (3.5-5.1); TOTAL BILIRUBIN 2.1 mg/dL (0.0-1.0); TOTAL PROTEIN, SERUM 7.3 g/dL (6.4-8.2)
[2022-11-07] MEDS ORDERED: metroNIDAZOLE 500 MG TAB PO ONE (22:15)
[2022-11-07] MEDS ORDERED: HYDROcodone/APAP 5/325 MG 1 TAB TAB PO ONE (22:15)
[2022-11-07] MEDS ORDERED: DICYCLOMINE 20 MG/2 ML VIAL IM ONE (22:15)
[2022-11-07] MEDS ORDERED: KETOROLAC 30 MG/ML VIAL IM ONE (22:15)
[2022-11-07] MEDS ORDERED: BEN10 PO (22:17)
[2022-11-07] MEDS ORDERED: METR-435 PO (22:17)
[2022-11-07] MEDS ORDERED: CIPR500T4 PO (22:17)
[2022-11-07] MEDS ORDERED: ACET-8905 PO (22:17)
[2022-11-07 23:15] VITALS: BP 129/86; PULSE 68; RESP 14; O2SAT 95
== END 2022-11-07 23:15 | disposition home or self-care (01) ==
LOC: MED 19:28
DX: K57.92 Diverticulitis of intestine, part unspecified, without perforation or abscess without bleeding (principal); E11.9 Type 2 diabetes mellitus without complications; I10 Essential (primary) hypertension; Z79.899 Other long term (current) drug therapy; Z79.84 Long term (current) use of oral hypoglycemic drugs
CPT/HCPCS: 36415; 74176; 80053; 81003; 83690; 85025; 96372; 99285; J0500; J1885

== ENCOUNTER 2023-09-06 18:18 | Emergency (ER) | payer MEDICAID ==
[~2023-09-06] VITALS: Ht 165.1 cm; Wt 75.7 kg
[~2023-09-06 18:18] MED LIST changes: +CHLO-1446 PO; +CLOP-68 PO; -HYDR-5080 PO; -KETO10TA2 PO; -LIB25 PO; -MECL-335 PO; -MULT-405 PO; -THO25 PO
[2023-09-06 18:33] VITALS: BP 135/93; PULSE 69; RESP 18; TEMP 97.8; O2SAT 100
[2023-09-06 20:26] LABS: APPEARANCE,URINE CLEAR (CLEAR); BILIRUBIN,URINE 1+ (NEGATIVE); BLOOD, URINE NEGATIVE (NEGATIVE); COLOR,URINE ORANGE (YELLOW); LEUKOCYTE ESTERASE ,URINE NEGATIVE (NEGATIVE); NITRITE, URINE NEGATIVE (NEGATIVE); PROTEIN,URINE NEGATIVE (NEGATIVE); UGLUCOSE TRACE (NEGATIVE)
[2023-09-06 20:37] LABS: ICTOTEST NEGATIVE (NEGATIVE)
[2023-09-06 21:19] LABS: BASOPHILS # (AUTO) 0.1 K/uL (0.00-0.22); BASOPHILS % (AUTO) 1.7 % (0.0-2.0); EOSINOPHILS # (AUTO) 0.1 K/uL (0-0.4); EOSINOPHILS % (AUTO) 3.2 % (0.0-4.0); HEMATOCRIT 45.1 % (36-52); HEMOGLOBIN 15.3 g/dL (12.0-18.0); LYMPHOCYTES # (AUTO) 0.6 K/uL (2.0-11.5); LYMPHOCYTES % (AUTO) 18.2 % (20.5-51.1); MEAN CORPUSCULAR HEMOGLOBIN 31 pg (27-31); MEAN CORPUSCULAR HGB CONC 34 g/dL (33-37); MEAN CORPUSCULAR VOLUME 92.4 fL (80-94); MONOCYTES # (AUTO) 0.3 K/uL (0.8-1.0); MONOCYTES % (AUTO) 8.9 % (1.7-9.3); NEUTROPHILS # (AUTO) 2.2 K/uL (1.8-7.7); PLATELET COUNT (AUTO) 168 K/uL (140-450); RED BLOOD CELL COUNT(AUTO) 4.88 MIL/uL (4.20-6.10); RED CELL DISTRIBUTION WIDTH 12.5 % (11.6-13.7); WHITE BLOOD COUNT (AUTO) 3.3 K/uL (4.8-10.8)
[2023-09-06 21:26] LABS: ANION GAP 15.6 (8-16); CALCIUM 9.3 mg/dL (8.5-10.1); CREATININE 0.9 mg/dL (0.6-1.3); POTASSIUM 3.6 mmol/L (3.5-5.1)
[2023-09-06 23:35] VITALS: O2SAT 99
[2023-09-07 00:26] VITALS: BP 127/81; PULSE 60; RESP 18
[2023-09-07 01:37] VITALS: O2SAT 95
== END 2023-09-07 01:41 | disposition home or self-care (01) ==
LOC: MED 18:18
DX: R10.9 Unspecified abdominal pain (principal); R33.9 Retention of urine, unspecified; E11.9 Type 2 diabetes mellitus without complications; I10 Essential (primary) hypertension; Z86.73 Personal history of transient ischemic attack (TIA), and cerebral infarction without residual deficits; Z79.899 Other long term (current) drug therapy; Z79.82 Long term (current) use of aspirin
CPT/HCPCS: 36415; 80048; 81003; 84484; 85025; 99285

== ENCOUNTER 2023-09-25 14:48 | Emergency (ER) | payer MEDICAID ==
[~2023-09-25] VITALS: Ht 165.1 cm; Wt 77.1 kg
[2023-09-25 15:15] VITALS: BP 145/87; PULSE 91; RESP 16; TEMP 98.3; O2SAT 97
[2023-09-25] MEDS: IBUPROFEN 400 MG TAB PO ONE (15:48)
[2023-09-25] MEDS ORDERED: PHEN-1877 PO (16:17)
[2023-09-25] MEDS ORDERED: CIPR250T6 PO (16:17)
[2023-09-25 16:40] VITALS: BP 128/72; PULSE 82; RESP 1; TEMP 98; O2SAT 99
== END 2023-09-25 16:40 | disposition home or self-care (01) ==
LOC: MED 14:48
DX: N30.00 Acute cystitis without hematuria (principal); E11.9 Type 2 diabetes mellitus without complications; I10 Essential (primary) hypertension; Z86.73 Personal history of transient ischemic attack (TIA), and cerebral infarction without residual deficits; Z79.82 Long term (current) use of aspirin; Z79.899 Other long term (current) drug therapy; Z79.01 Long term (current) use of anticoagulants
CPT/HCPCS: 81002; 99283

== ENCOUNTER 2023-11-03 14:01 | Emergency (ER) | payer MEDICAID ==
[~2023-11-03] VITALS: Ht 165.1 cm; Wt 78.9 kg
[~2023-11-03 14:01] MED LIST changes: +CIPR250T6 PO; +PHEN-1877 PO
--- NOTE | 2023-11-03 14:30 | NUR ---
Vasu joyce in [facility] - 11/03/23 at 1900 by [email or web address] NON DISTRESS CALL LIGHT WITHIN REACH, VSS.
[2023-11-03 14:54] VITALS: BP 128/92; RESP 18; TEMP 98.4; O2SAT 97
--- NOTE | 2023-11-03 15:13 | NUR ---
47/M PRESENTED IN ED CC OF RUQ AB PAIN X2DAYS, RADIATING TO RUQ TO LLQ THAT COMES AND GO, + N/V/D NON BLOODY. DENIES PAIN AT THIS MOMENT, SOB, CP, FEVER. PMHX DM, HTN, STROKE, HIGH CHOLESTEROL, DIVERTICULITIS, VERTIGO, GERD. NKA
[2023-11-03] MEDS: NACL 0.9% 1,000 ML IV ONE (15:31)
[2023-11-03] MEDS: MECLIZINE 25 MG TAB PO ONE (15:32)
[2023-11-03] MEDS: ONDANSETRON 4 MG/2 ML VIAL IVP ONE (15:34)
[2023-11-03 15:35] LABS: BASOPHILS % (AUTO) 0.4 % (0.0-2.0); EOSINOPHILS % (AUTO) 0.8 % (0.0-4.0); HEMATOCRIT 48.5 % (36-52); HEMOGLOBIN 16.9 g/dL (12.0-18.0); LYMPHOCYTES # (AUTO) 0.7 K/uL (2.0-11.5); LYMPHOCYTES % (AUTO) 13.9 % (20.5-51.1); MEAN CORPUSCULAR HEMOGLOBIN 32 pg (27-31); MEAN CORPUSCULAR HGB CONC 35 g/dL (33-37); MEAN CORPUSCULAR VOLUME 92.6 fL (80-94); MONOCYTES # (AUTO) 0.4 K/uL (0.8-1.0); MONOCYTES % (AUTO) 9.2 % (1.7-9.3); NEUTROPHILS # (AUTO) 3.7 K/uL (1.8-7.7); NEUTROPHILS % (AUTO) 75.7 % (42.2-75.2); PLATELET COUNT (AUTO) 162 K/uL (140-450); RED BLOOD CELL COUNT(AUTO) 5.24 MIL/uL (4.20-6.10); RED CELL DISTRIBUTION WIDTH 14.2 % (11.6-13.7); WHITE BLOOD COUNT (AUTO) 4.8 K/uL (4.8-10.8)
[2023-11-03] MEDS: FAMOTIDINE 20 MG/2 ML VIAL IVP ONE (15:38)
[2023-11-03 15:53] LABS: ANION GAP 18.5 (8-16); CALCIUM 9.7 mg/dL (8.5-10.1); POTASSIUM 3.5 mmol/L (3.5-5.1)
[2023-11-03 16:03] LABS: ALANINE AMINOTRANSFERASE 537 U/L (12-78); ALBUMIN 4.6 g/dL (3.4-5.0); ALKALINE PHOSPHATASE 96 U/L (50-136); ASPARTATE AMINOTRANSFERASE 258 U/L (15-37); BILIRUBIN,DIRECT 1.4 mg/dL (0.0-0.3); LIPASE 47 U/L (16-77); TOTAL BILIRUBIN 5.1 mg/dL (0.0-1.0); TOTAL PROTEIN, SERUM 8.8 g/dL (6.4-8.2)
--- NOTE | 2023-11-03 16:30 | NUR ---
NON DISTRESS CALL LIGHT WITHIN REACH, VSS.
[2023-11-03 18:00] VITALS: TEMP 98.4
--- NOTE | 2023-11-03 18:00 | NUR ---
BLANKET OFFERED TO PT AWAITING FOR CT SCN NO COMPLAINTS.
--- NOTE | 2023-11-03 19:08 | NUR ---
BACK FROM CT
--- NOTE | 2023-11-03 19:19 | NUR ---
REPORT GIVEN TO LEILANI AT THIS TIME. NO FURTHER QUESTION.
--- NOTE | 2023-11-03 19:23 | NUR ---
CONTINUATION OF CARE - RECIEVED REPORT FROM MATT LORA. PT AWAKE IN BED AND ON BEDSIDE MONITOR, CALL LIGHT WITHIN REACH.
[2023-11-03 22:14] VITALS: BP 116/76; PULSE 63; RESP 17; O2SAT 99
== END 2023-11-03 23:21 | disposition home or self-care (01) ==
LOC: MED 14:01
DX: R10.13 Epigastric pain (principal); R42 Dizziness and giddiness; R11.2 Nausea with vomiting, unspecified; R19.7 Diarrhea, unspecified; E11.9 Type 2 diabetes mellitus without complications; I10 Essential (primary) hypertension; Z86.73 Personal history of transient ischemic attack (TIA), and cerebral infarction without residual deficits; Z79.899 Other long term (current) drug therapy; Z79.82 Long term (current) use of aspirin
CPT/HCPCS: 36415; 70450; 74177; 80048; 80076; 83690; 84484; 85025; 93005; 96361; 96374; 96375; 99285; J2405; J3490; J7030; J8597; Q9967